=== PATIENT | male | born 1970 | race Caucasian/White ===

== ENCOUNTER 2020-06-21 17:25 | IRF | payer MEDICARE, MEDICAID, SELFPAY ==
[2020-06-21 17:25] VITALS: BP 143/82; PULSE 73; RESP 20; TEMP 36.3; O2SAT 96; BMI 37.7
--- NOTE | 2020-06-21 17:55 | ADMGEN ---
This patient, Saud Washington, was admitted to [facility] Room 225-02. Patient/family oriented to hospital policies and general routines including ID bracelet, bed and alarms, visiting hours, pain management, procedures, bathroom and other care routines, personal items, smoking policy, room service/diet, and visiting hours. Valuables list has been completed. Information on how to activate the Rapid Response Team has been discussed. Patient/Family are encouraged to report perceived risks to care and to ask questions if they do not understand what they are told or what they should do. 1725 Patient arrived via [facility] ambulance, accompanied only by ambulance attendents. He is alert and oriented x4
[2020-06-21] MEDS: MIRTAZAPINE 15 MG TABLET PO (21:21)
[2020-06-21] MEDS: HEPARIN SODIUM 5,000 UNITS/ML VIAL 5000 UNITS SUB-Q (21:21)
[2020-06-21] MEDS: ATORVASTATIN 40 MG TABLET PO (21:22)
--- NOTE | 2020-06-21 21:41 | PC.NURSE ---
pt refused gabapentin at bedtime stating he only takes it as needed. updated.
[2020-06-21 22:00] VITALS: BP 134/94; PULSE 71; RESP 18; TEMP 36.6; O2SAT 92
[2020-06-22] VITALS (21 sets, daily range): BP systolic 147–168; BP diastolic 45–92; PULSE 61–83; RESP 18–24; TEMP 36.2–37; O2SAT 95–96; BMI 38.3
[2020-06-22 04:59] LABS: Basophils Percent Auto 0.1 % (0.2-1.2); Eosinophils Absolute Auto 0.1 K/mm3 (0-0.3); Eosinophils Percent Auto 1.9 % (0-4.4); Hematocrit 28.7 % (42.0-52.0); Hemoglobin 8.6 g/dL (14.0-18.0); Immature Granulocyte Absolute 0.03 K/mm3 (0.00-0.031); Immature Granulocyte Percent A 0.4 % (0-0.5); Lymphocytes Absolute Auto 1.86 K/mm3 (0.9-3.2); Lymphocytes Percent Auto 25.8 % (18.3-44.2); Mean Corpuscular Hemoglobin 27.7 pg (26-34); Mean Corpuscular Volume 92.3 fl (80-100); Mean Platelet Volume 10.5 fl (7.4-10.4); Monocytes Absolute Auto 0.6 K/mm3 (0.1-0.6); Monocytes Percent Auto 8.1 % (2.6-8.5); Neutrophils Absolute Auto 4.6 K/mm3 (1.3-6.7); Neutrophils Percent Auto 63.7 % (45.5-73.1); Platelet Count Result 267 k/mm3 (150-375); Red Blood Count 3.11 M/mm3 (4.6-6.20); Red Cell Distribution Width 19.6 % (11.5-14.5); White Blood Count 7.2 K/mm3 (4.5-10.0)
[2020-06-22 05:12] LABS: Anion Gap 12.7 mmol/L (7-16); Blood Urea Nitrogen 45 mg/dL (9-20); Calcium 8.3 mg/dL (8.4-10.2); Carbon Dioxide 29 mmol/L (22-30); Chloride 95 mmol/L (98-107); Estimated CRCL calculation 26 ml/min; Estimated Glomerular Filt Rate 17; Glucose 129 mg/dL (75-110); Potassium 3.7 mmol/L (3.4-5.0); Sodium 133 mmol/L (137-145)
[2020-06-22 06:40] LABS: Glucose Point of Care 135 (65-105)
[2020-06-22] MEDS: HEPARIN SODIUM 5,000 UNITS/ML VIAL 5000 UNITS SUB-Q ×2 (08:50→20:42)
[2020-06-22] MEDS: ASPIRIN 81 MG CHEWABLE TABLET PO (08:50)
[2020-06-22] MEDS: LACTIC ACID 12% LOTION 225 BTL 1 APPLIC TOPICAL (08:50)
[2020-06-22] MEDS: lisinopriL 10 MG TABLET 30 MG PO (08:50)
[2020-06-22] MEDS: CHOLECALCIFEROL 1,000 UNIT TABLET 1000 UNITS PO (08:50)
[2020-06-22] MEDS: METOPROLOL SUCCINATE EXT REL 100 MG TABCR PO (08:51)
[2020-06-22] MEDS: PANTOPRAZOLE 40 MG TABLET PO (08:52)
[2020-06-22] MEDS: VITAMIN B CMPLX/VIT C/FOLIC AC 1 CAPSULE 1 CAP PO (08:52)
--- NOTE | 2020-06-22 09:30 | WPDREHABHP ---
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 The patient is a 49-year-old white male who is left-handed with a past medical history of diabetes mellitus type 2 with evidence of peripheral neuropathy, congestive heart failure, coronary artery disease and end-stage renal disease now on hemodialysis and Friday and Friday who presented to [facility] on May 31, 2020 with soft tissue infection at the concern for metacarpal head osteomyelitis. Of note patient had a right 3rd finger amputation at metacarpophalangeal joint on May 10, 2020 for gangrene. He was on Bactrim for 3 weeks. He was admitted to [facility] where Infectious Disease, plastic hand surgery, and nephrology were consult consulted. On June 03, 2020 the patient underwent debridement of the right 3rd finger amputation and right 4th finger ray amputation. The cultures from the OR grew Actenomyces. On June 06, 2020 the patient underwent ligation of the right arm AV fistula for concern for steal syndrome. I hemodialysis left intra jugular Perma cath was placed on June 07, 2020. Surgery was planned in June 12 for debridement and mattress stem placement to the right hand wound but the patient had PE a arrest after anesthesia induction and had to be resuscitated. He was transferred to ICU and surgery was consulted canceled. He was extubated and transferred back to the regular medical floor on June 14, 2020. The evening of June 19 the patient underwent the surgery for debridement and mattress time placement to the right hand wound by Plastic surgery with local anesthesia only. Postoperatively he was doing well and still doing well except significant weakness of both upper lower extremities proximal more than distal. There was only trace necrotic tissue found without clinical osteomyelitis. Infectious Disease has discontinued IV antibiotics and he will remain on oral amoxicillin to be given at night for 3 months. He has peritoneal dialysis catheter in place that will be removed on an outpatient basis after rehab at [facility] where he was put in he does have the patient to follow up with Infectious Disease 1 month after discharge. Patient hospitalization significant for uremic myopathy as evidenced by a reduced GFR currently a 23 up from 11, difficulty rising from a chair or bed muscle atrophy and proximal muscle weakness more than the distal needing significant assistance in all the activities of daily living The patient has not traveled outside the [place] or had contact with someone who is ill that has traveled outside the use in the past 21 days. The patient has not traveled to an area of the [place] that is experiencing no transmission of the coronal virus and has not had close personal contact with anyone that has. Patient does not have a fever. The patient is not experiencing any lower respiratory illness symptoms. Therapy was initiated at the acute care facility and the patient transferred to us from [facility] on June 21, 2020 FALLS OR SURGERIES: The patient has had major surgeries in the 100 days prior to admission. They had falls in the past year. They had falls with injury in the past year. PAST MEDICAL HISTORY: end-stage renal disease on hemodialysis now prior to that he was PAST SURGICAL HISTORY: End-stage renal disease on hemodialysis, prior to that on peritoneal dialysis roughly about 4 years which was complicated by peritonitis for which he was treated at [facility] and now has a drain which is not draining much it has to be removed at w
--- NOTE | 2020-06-22 11:17 | PM.CNNEP ---
Assessment and Plan Assessment and plan (1) End stage renal disease: Code(s): N18.6 - End stage renal disease Status: Acute Assessment and Plan: the patient has end-stage renal disease. He gets dialysis 3 times a week. He says that they take a couple of L off each treatment. We will do dialysis this afternoon and take 2L off. If he does real well then we may challenge him to try to get rid of the fluid in his legs. (2) Type 2 diabetes mellitus: Code(s): E11.9 - Type 2 diabetes mellitus without complications Status: Acute Assessment and Plan: The patient is getting Accu-Cheks. He is on no insulin. (3) Hypertension: Code(s): I10 - Essential (primary) hypertension Status: Acute Assessment and Plan: The patient has had hypertension for a long time. He is getting lisinopril for this. His blood pressure is pretty good right now. We will see how it does with dialysis And fluid removal. (4) Coronary artery disease: Code(s): I25.10 - Atherosclerotic heart disease of [place] coronary artery without angina pectoris Status: Acute Assessment and Plan: The patient has coronary artery disease. He had a bypass a while back. He is not having any chest pain (5) Erythropoietin deficiency anemia: Code(s): D63.1 - Anemia in chronic kidney disease Status: Acute Assessment and Plan: the patient has anemia. We can check iron levels and a retained count to see how he is responding to the EPO. He will get EPO with dialysis (6) Renal osteodystrophy: Code(s): N25.0 - Renal osteodystrophy Status: Acute Assessment and Plan: we will check a phosphorus in the morning. (7) Peritoneal abscess: Code(s): K65.1 - Peritoneal abscess Status: Acute Assessment and Plan: The patient still has the drain in here. This is not a peritoneal dialysis catheter. This will be removed at [facility]. History of Present Illness Reason for Consult Consult date: 06/22/20 Chief Complaint Chief complaint: Uremic myopathy History of Present Illness Narrative: he is a very pleasant 49-year-old gentleman who has multiple medical problems including end-stage renal disease, diabetes, hypertension, peripheral vascular disease, coronary disease status post bypass, anemia, renal osteodystrophy, hyperlipidemia, vitamin-D deficiency, GERD. The patient has trouble started a few weeks ago when he developed ulcers on his fingers. This was felt to be due to steal from a recently placed fistula. So the fistula was tied off but the wounds on the fingers continued to worsen any ended up with amputation of his 3rd and 4th fingers in the right hand. In the meantime the patient had complications while in the hospital including a PEA arrest, moved to the ICU, intubation, somewhat stormy course apparently, and then recovered. He was left with being very weak and even though he had physical therapy in the hospital he was not strong enough to go home so he was transferred to [facility] rehab for further care. Currently the patient feels better. He has been eating pretty well. He is not having any shortness of breath. He does have a little bit of swelling. He denies any chest pain or belly pain. The patient has had end-stage renal disease for about 6 or 7 years he says. He says at that time he had not been aware ofany medical conditions and when he presented in 2013 he had hypertension, diabetes, and kidney failure. He ended up on dialysis. He started peritoneal dialysis and was on this for about 4 years. Unfortunately he developed peritonitis in the had to stop the dialysis and the catheter was removed. Since then he has been on hemodialysis by various accesses. As stated above he had a fistula that was maturing however he developed this deal so the fistula was tied off and now he has a tunneled hemodialysis catheter
[2020-06-22 12:28] LABS: Immature Reticulocyte Fraction 14.9 % (3.0-15.9); Reticulocyte Hemoglobin Conten 35.4 pg (28.2-35.7); Reticulocyte Percent 3.06 % (0.7-4.3)
[2020-06-22 12:55] LABS: Hepatitis B Surface Antigen 1.21 S/C; Hepatitis B Surface Antigen Negative (Negative); Hepatitis B Surface Antigen Re 0.18 S/C
[2020-06-22 13:52] LABS: Hepatitis B Surface Anti Res Negative
[2020-06-22] MEDS: HEPARIN SODIUM 1,000 UNITS/ML VIAL 1000 UNITS IV PUSH ×2 (13:52→17:53)
[2020-06-22] MEDS: HEPARIN SODIUM 1,000 UNITS/ML VIAL 500 UNITS IV PUSH ×2 (13:56→14:56)
--- NOTE | 2020-06-22 15:04 | PCCCNOTE ---
On 06/22/20, the student, [Carlito Fisher ], provided care and completed [facility] documentation on this patient. I have reviewed the student's documentation and agree with the findings.
--- NOTE | 2020-06-22 15:26 | RPD ---
INDIVIDUALIZED PLAN OF CARE FOR Saud Washington Brief Synthesis of Pre-Admission Screen, Post-Admission Evaluation and Therapy Evaluations: The patient presents to rehab with uremic myopathy. Comorbidities include hypertension, hyperlipidemia, diabetes mellitus type 2 with hyperglycemia, end-stage renal disease on hemodialysis, anemia, steal syndrome, right 3rd and 4th digit osteomyelitis with necrosis, volume overload, anasarca, hypotension, left perma cath placement, coronary artery disease, AVF ligation, acute postoperative pain, bone mineral disease, vitamin D deficiency, and PEA arrest. The patient?s needs will be best met in an intensive program vs. at a lower level of care. The patient requires physician services for medical oversight, management of post-op complications in setting of present comorbidities, and pain management. The patient requires nursing services for anticoagulation therapy, diabetes training, DVT prophylactics, infection protection, medication management and education, pressure relief, and wound care. Deficits include:ADLs, Balance, Endurance, Family Training/Education, Mobility, Pain Management, ROM, Safety, Strength, and Transfers Ambulance Dispatcher/Case Management for: Discharge Planning and Patient/Family Counseling Physical Therapy: 5 days per week for 90 minutes. Treatments may include: Therapeutic Exercise, Gait Training, Neuromuscular Re-education, Transfer Training, Community Reintegration, Bed Mobility, Patient/Family Education, Wheelchair Mobility Group Therapy/Concurrent Therapy Rationales: -Improve attention span during functional activities in a distracted environment. -Enhance problem solving and/or adequate judgment skills during functional activities in a distracted environment. -Promote increased safety awareness in a distracted environment to reduce fall risk with functional tasks, transfers, and ambulation to allow a more safe, self-sufficient return to the home environment. -Improve dynamic balance skills to promote safety and independence with functional activities in a distracted environment for maximum gain. Occupational Therapy: 5 days per week for 90 minutes. Treatments may include: Therapeutic Exercise, Therapeutic Activity, Cognitive Training, Self-Care Transfer Training, Community Reintegration, Home Management, Patient/Family Education, Wheelchair Mobility Training, Energy Conservation Training Group Therapy/Concurrent Therapy Rationales: -Allow therapist to observe and teach generalization and carry-over of skills learned in individual therapy. -Enhance problem solving and sequencing skills during therapeutic activities in a distracted environment. -Promote increased safety awareness in a realistic setting to reduce fall risk with functional tasks due to visual and verbal distractions. -Increase functional level with ADLs, ADL transfers and use of adaptive equipment through therapeutic activities with others while promoting safety to allow a more safe, self-sufficient return home. Medical Prognosis: Good Anticipated Length of Stay: 14 days Rehab Goals: Eating Goal: 06-Independent Oral Hygiene Goal: 05-Setup or Clean Up Assistance Toileting Hygiene Goal: 03-Partial/Moderate Assistance Shower/Bathe Self Goal: 03-Partial/Moderate Assistance Upper Body Dressing Goal: 05-Setup or Clean Up Assistance Lower Body Dressing Goal: 03-Partial/Moderate Assistance Putting On/Taking Off Footwear Goal: 03-Partial/Moderate Assistance Rolling Left and Right Goal: 06-Independent Sit to Lying Goal: 06-Independent Lying to Sitting on Side of Bed Goal: 06-Independent Sit to Stand Goal: 04-Supervision or Touching Assistance Chair/[id number]-[id number] Transfer Goal: 04-Supervision or Touching Assistance Toilet Transfer Goal: 04-Supervision or Touching Assistance Car Transfer Goal: 04-Supervision or Touching Assistance Walk 10' Goal: 04-Supervision or Touching Assistance Walk 50' with Two Turns Goal: 03-Partial/Moderate Assistance
[2020-06-22] MEDS: EPOETIN ALFA-EPBX 10,000 UNITS/ML VIAL 10000 UNITS IV PUSH (16:58)
[2020-06-22 17:08] LABS: Iron 57 ug/dL (49-181)
[2020-06-22 17:18] LABS: Percent Iron Saturation 31 % (20-50)
[2020-06-22] MEDS: AMOXICILLIN 500 MG CAPSULE PO (20:42)
[2020-06-22] MEDS: ATORVASTATIN 40 MG TABLET PO (20:42)
[2020-06-22] MEDS: MIRTAZAPINE 15 MG TABLET PO (20:42)
[2020-06-23 05:03] LABS: Albumin Level 3.1 g/dL (3.5-5.1); Anion Gap 10.7 mmol/L (7-16); Blood Urea Nitrogen 30 mg/dL (9-20); Calcium 8.2 mg/dL (8.4-10.2); Carbon Dioxide 31 mmol/L (22-30); Chloride 97 mmol/L (98-107); Estimated CRCL calculation 32 ml/min; Estimated Glomerular Filt Rate 22; Glucose 138 mg/dL (75-110); Phosphorus 2.3 mg/dL (2.5-4.5); Potassium 3.7 mmol/L (3.4-5.0); Sodium 135 mmol/L (137-145)
[2020-06-23 06:00] VITALS: BP 150/74; PULSE 95; RESP 18; TEMP 36.3; O2SAT 95
[2020-06-23 06:52] LABS: Glucose Point of Care 132 (65-105)
[2020-06-23] MEDS: LACTIC ACID 12% LOTION 225 BTL 1 APPLIC TOPICAL (08:30)
[2020-06-23] MEDS: HEPARIN SODIUM 5,000 UNITS/ML VIAL 5000 UNITS SUB-Q ×2 (08:41→19:58)
[2020-06-23 08:42] VITALS: PULSE 95
[2020-06-23] MEDS: ASPIRIN 81 MG CHEWABLE TABLET PO (08:42)
[2020-06-23] MEDS: CHOLECALCIFEROL 1,000 UNIT TABLET 1000 UNITS PO (08:42)
[2020-06-23] MEDS: PANTOPRAZOLE 40 MG TABLET PO (08:42)
[2020-06-23] MEDS: METOPROLOL SUCCINATE EXT REL 100 MG TABCR PO (08:42)
[2020-06-23] MEDS: lisinopriL 10 MG TABLET 30 MG PO (08:42)
[2020-06-23] MEDS: DIGOXIN TAB 125 MCG TABLET PO (08:42)
[2020-06-23] MEDS: VITAMIN B CMPLX/VIT C/FOLIC AC 1 CAPSULE 1 CAP PO (08:42)
[2020-06-23 14:00] VITALS: BP 143/72; PULSE 98; RESP 20; TEMP 36.2; O2SAT 97
--- NOTE | 2020-06-23 15:00 | WPDNEURORHBP ---
Subjective Date/time seen: 06/23/20 15:00 Interval history: this 49-year-old is here with diagnosis of uremic myopathy with significant weakness of the lower extremities than the upper extremities he is on dialysis now and the PermCath is intact and is being used for the dialysis the old peritoneal dialysis catheter has a drain which needs to be removed at the [facility] post discharge the patient is getting little frustrated because he has been in the hospital for several weeks with of course with weakness of the myopathy she denies he denies any headache nausea vomiting chest pain shortness of breath fever chills sore throat Review of Systems Review of Systems: All systems reviewed & are unremarkable except as noted in HPI and below Functional Status Ambulation Ability Ability to Ambulate 10 Feet: Moderate Assistance X 1 Ambulation Assistive Devices: Railings Transfers Ability Ability to Transfer In/Out of Chair: Total Assistance X 1 Exam Const: General: comfortable and no acute distress HENMT: General nose exam: Normal nares present Mouth: Yes moist mucous membranes Eyes: General: appearance normal, both eyes and all related structures Neck: Neck: supple and no JVD Resp: Effort & Inspection: normal respiratory effort Auscultation: clear to auscultation bilaterally Cardio: Rate: regular rate Rhythm: regular rhythm GI: GI Palp: Yes Soft to palpation Auscultation: normal bowel sounds Other: the peritoneal dialysis catheter is there with a drain not much drainage is noted no sign of infectious noted around there Skin: General skin exam: normal color and no rashes or lesions noted Neuro: Other: patient is awake alert well oriented without any lateralizing focal motor weakness however significant myopathy affecting the lower extremities more so than the upper extremities needing assistance all the activities of daily living with depressed reflexes also sensory deficit in the feet and the lower legs Extrem: Other: mild swelling of the lower extremity Psych: Mental Status: mental status grossly normal Objective Data Vital Signs Vital Signs: Vital Signs - 24 hr 06/22/20 15:15 06/22/20 15:30 06/22/20 16:00 Temperature Pulse Rate 70 65 62 Respiratory Rate Blood Pressure 166/83 H 158/84 H 168/85 H Pulse Oximetry 06/22/20 16:15 06/22/20 16:30 06/22/20 16:45 Temperature Pulse Rate 63 64 63 Respiratory Rate Blood Pressure 164/89 H 153/73 H 150/79 H Pulse Oximetry 06/22/20 17:00 06/22/20 17:15 06/22/20 17:29 Temperature Pulse Rate 64 63 61 Respiratory Rate Blood Pressure 156/80 H 153/83 H 157/83 H Pulse Oximetry 06/22/20 17:35 06/22/20 22:00 06/23/20 06:00 Temperature 36.8 C 36.5 C 36.3 C L Pulse Rate 64 75 95 Respiratory Rate 20 18 18 Blood Pressure 147/89 H 152/77 H 150/74 H Pulse Oximetry 96 95 06/23/20 08:42 06/23/20 14:00 Temperature 36.2 C L Pulse Rate 95 98 Respiratory Rate 20 Blood Pressure 143/72 H Pulse Oximetry 97 Intake/Output Intake/Output: Intake & Output 06/20/20 06/21/20 06/22/20 06/23/20 23:59 23:59 23:59 23:59 Intake Total 840 340 Output Total 1999 Balance -1160 340 Meds/Results Medications: Active Medications Generic Name Dose Route Start Last Admin Trade Name Freq PRN Reason Stop Dose Admin Acetaminophen 650 mg 06/21/20 18:52 Tylenol Tablet PO Q6H PRN Pain, Mild Amoxicillin 500 mg 06/22/20 21:00 06/22/20 20:42 Amoxil Capsule PO 500 mg HS RONNIE Administration Aspirin 81 mg 06/22/20 09:00 06/23/20 08:42 Aspirin Chewable PO 81 mg DAILY RONNIE Administration Atorvastatin Calcium 40 mg 06/21/20 21:00 06/22/20 20:42 Lipitor PO 40 mg HS RONNIE Administration Digoxin 125 mcg 06/23/20 09:00 06/23/20 08:42 Lanoxin Tab PO 125 mcg MoWeFr RONNIE Administration Gabapentin 100 mg 06/22/20 11:07 Neurontin PO Q4H PRN MODERATE PAIN H
[2020-06-23 16:40] LABS: Glucose Point of Care 156 (65-105)
[2020-06-23] MEDS: AMOXICILLIN 500 MG CAPSULE PO (19:58)
[2020-06-23] MEDS: ATORVASTATIN 40 MG TABLET PO (19:58)
[2020-06-23] MEDS: MIRTAZAPINE 15 MG TABLET PO (19:59)
[2020-06-23 20:00] VITALS: PULSE 74; RESP 20; O2SAT 97
[2020-06-23 20:21] VITALS: BP 171/65; PULSE 74; RESP 20; TEMP 35.9; O2SAT 97
[2020-06-24] VITALS (23 sets, daily range): BP systolic 141–188; BP diastolic 65–108; PULSE 68–84; RESP 18–20; TEMP 35.9–37; O2SAT 91–97
[2020-06-24 06:50] LABS: Glucose Point of Care 135 (65-105)
[2020-06-24] MEDS: HEPARIN SODIUM 5,000 UNITS/ML VIAL 5000 UNITS SUB-Q ×2 (09:34→20:27)
[2020-06-24] MEDS: VITAMIN B CMPLX/VIT C/FOLIC AC 1 CAPSULE 1 CAP PO (09:34)
[2020-06-24] MEDS: METOPROLOL SUCCINATE EXT REL 100 MG TABCR PO (09:35)
[2020-06-24] MEDS: lisinopriL 10 MG TABLET 30 MG PO (09:35)
[2020-06-24] MEDS: CHOLECALCIFEROL 1,000 UNIT TABLET 1000 UNITS PO (09:35)
[2020-06-24] MEDS: LACTIC ACID 12% LOTION 225 BTL 1 APPLIC TOPICAL (09:35)
[2020-06-24] MEDS: ASPIRIN 81 MG CHEWABLE TABLET PO (09:35)
[2020-06-24] MEDS: PANTOPRAZOLE 40 MG TABLET PO (09:35)
--- NOTE | 2020-06-24 09:42 | PM.PNNEP ---
Progress Note: A&P Assessment and Plan (1) End stage renal disease: Code(s): N18.6 - End stage renal disease Status: Acute Assessment and Plan: the patient has end-stage renal disease. He gets dialysis 3 times a week. due for dialysis today. He will get this after physical therapy today. (2) Type 2 diabetes mellitus: Code(s): E11.9 - Type 2 diabetes mellitus without complications Status: Acute Assessment and Plan: The patient is getting Accu-Cheks. He is on no insulin. (3) Hypertension: Code(s): I10 - Essential (primary) hypertension Status: Acute Assessment and Plan: The patient has had hypertension for a long time. He is getting lisinopril for this. His blood pressure is pretty good right now. (4) Coronary artery disease: Code(s): I25.10 - Atherosclerotic heart disease of [place] coronary artery without angina pectoris Status: Acute Assessment and Plan: The patient has coronary artery disease. He had a bypass a while back. He is not having any chest pain (5) Erythropoietin deficiency anemia: Code(s): D63.1 - Anemia in chronic kidney disease Status: Acute Assessment and Plan: the patient has anemia. T sat is okay. Retake is good. He will get EPO with dialysis (6) Renal osteodystrophy: Code(s): N25.0 - Renal osteodystrophy Status: Acute Assessment and Plan: Phosphorus level a little bit low. He is off binders. Recheck this next week (7) Peritoneal abscess: Code(s): K65.1 - Peritoneal abscess Status: Acute Assessment and Plan: The patient still has the drain in here. This is not a peritoneal dialysis catheter. This will be removed at [facility]. Subjective Date/time seen: 06/24/20 09:42 Interval history: patient is alert. He just finished breakfast. No chest pain or shortness of breath Review of Systems Cardiovascular: Cardiovascular: Reports no additional cardiovascular complaints Respiratory: Respiratory: Reports no additional respiratory complaints Gastrointestinal: Gastrointestinal: Reports no additional gastrointestinal complaints Genitourinary: Genitourinary: Reports no additional male genitourinary complaints Exam Narrative: Exam Narrative: WDWN in NAD skin no rash head ncat lungs clear cor reg no rub abd BS+ nontender and soft ext 1+ edema. Objective Data Vital Signs Vital Signs: Vital Signs - 24 hr 06/23/20 14:00 06/23/20 20:00 06/23/20 20:21 Temperature 36.2 C L 35.9 C L Pulse Rate 98 74 74 Respiratory Rate 20 20 20 Blood Pressure 143/72 H 171/00 H Pulse Oximetry 97 97 97 06/24/20 06:00 06/24/20 09:10 06/24/20 09:35 Temperature 35.9 C L 36.6 C Pulse Rate 78 93 78 Respiratory Rate 18 18 Blood Pressure 142/85 H 141/59 H Pulse Oximetry 91 Intake/Output Intake/Output: Intake & Output 06/21/20 06/22/20 06/23/20 06/24/20 23:59 23:59 23:59 23:59 Intake Total 840 580 Output Total 1999 Balance -1160 580 Meds/Results Medications: Active Medications Generic Name Dose Route Start Last Admin Trade Name Freq PRN Reason Stop Dose Admin Acetaminophen 650 mg 06/21/20 18:52 Tylenol Tablet PO Q6H PRN Pain, Mild Amoxicillin 500 mg 06/22/20 21:00 06/23/20 19:58 Amoxil Capsule PO 500 mg HS RONNIE Administration Aspirin 81 mg 06/22/20 09:00 06/24/20 09:35 Aspirin Chewable PO 81 mg DAILY RONNIE Administration Atorvastatin Calcium 40 mg 06/21/20 21:00 06/23/20 19:58 Lipitor PO 40 mg HS RONNIE Administration Digoxin 125 mcg 06/23/20 09:00 06/23/20 08:42 Lanoxin Tab PO 125 mcg MoWeFr RONNIE Administration Gabapentin 100 mg 06/22/20 11:07 Neurontin PO Q4H PRN MODERATE PAIN Heparin Sodium (Porcine) 5,000 units 06/21/20 21:00 06/24/20 09:34 Heparin Sodium SUB-Q 5,000 units Q12HR SC
[2020-06-24] MEDS: HEPARIN SODIUM 1,000 UNITS/ML VIAL 1000 UNITS IV PUSH ×2 (16:11→20:06)
[2020-06-24] MEDS: HEPARIN SODIUM 1,000 UNITS/ML VIAL 500 UNITS IV PUSH ×2 (17:12→17:14)
[2020-06-24] MEDS: EPOETIN ALFA-EPBX 10,000 UNITS/ML VIAL 10000 UNITS IV PUSH (18:34)
[2020-06-24] MEDS: AMOXICILLIN 500 MG CAPSULE PO (20:27)
[2020-06-24] MEDS: MIRTAZAPINE 15 MG TABLET PO (20:27)
[2020-06-24] MEDS: ATORVASTATIN 40 MG TABLET PO (20:27)
[2020-06-25 05:26] VITALS: BP 151/78; PULSE 83; RESP 18; TEMP 36.7; O2SAT 93
[2020-06-25 06:48] LABS: Glucose Point of Care 126 (65-105)
[2020-06-25] MEDS: LACTIC ACID 12% LOTION 225 BTL 1 APPLIC TOPICAL (08:56)
[2020-06-25] MEDS: CHOLECALCIFEROL 1,000 UNIT TABLET 1000 UNITS PO (08:56)
[2020-06-25] MEDS: ASPIRIN 81 MG CHEWABLE TABLET PO (08:56)
[2020-06-25] MEDS: HEPARIN SODIUM 5,000 UNITS/ML VIAL 5000 UNITS SUB-Q ×2 (08:56→20:12)
[2020-06-25 08:57] VITALS: PULSE 83
[2020-06-25] MEDS: METOPROLOL SUCCINATE EXT REL 100 MG TABCR PO (08:57)
[2020-06-25] MEDS: PANTOPRAZOLE 40 MG TABLET PO (08:57)
[2020-06-25] MEDS: lisinopriL 10 MG TABLET 30 MG PO (08:57)
[2020-06-25] MEDS: VITAMIN B CMPLX/VIT C/FOLIC AC 1 CAPSULE 1 CAP PO (08:57)
[2020-06-25 14:00] VITALS: BP 148/71; PULSE 79; RESP 20; TEMP 36.1; O2SAT 98
[2020-06-25 16:55] LABS: Glucose Point of Care 136 (65-105)
[2020-06-25] MEDS: MIRTAZAPINE 15 MG TABLET PO (20:12)
[2020-06-25] MEDS: AMOXICILLIN 500 MG CAPSULE PO (20:12)
[2020-06-25] MEDS: ATORVASTATIN 40 MG TABLET PO (20:12)
[2020-06-25 20:13] VITALS: BP 154/81; PULSE 86; RESP 18; TEMP 36.2; O2SAT 96
[2020-06-26 06:00] VITALS: BP 158/87; PULSE 85; RESP 18; TEMP 36.4; O2SAT 93
[2020-06-26 06:13] LABS: Glucose Point of Care 110 (65-105)
[2020-06-26 08:48] VITALS: PULSE 85
[2020-06-26] MEDS: METOPROLOL SUCCINATE EXT REL 100 MG TABCR PO (08:48)
[2020-06-26] MEDS: ASPIRIN 81 MG CHEWABLE TABLET PO (08:48)
[2020-06-26] MEDS: HEPARIN SODIUM 5,000 UNITS/ML VIAL 5000 UNITS SUB-Q ×2 (08:48→20:27)
[2020-06-26] MEDS: PANTOPRAZOLE 40 MG TABLET PO (08:48)
[2020-06-26] MEDS: lisinopriL 10 MG TABLET 30 MG PO (08:48)
[2020-06-26] MEDS: CHOLECALCIFEROL 1,000 UNIT TABLET 1000 UNITS PO (08:48)
[2020-06-26] MEDS: DIGOXIN TAB 125 MCG TABLET PO (08:48)
[2020-06-26] MEDS: VITAMIN B CMPLX/VIT C/FOLIC AC 1 CAPSULE 1 CAP PO (08:49)
[2020-06-26] MEDS: LACTIC ACID 12% LOTION 225 BTL 1 APPLIC TOPICAL (08:49)
--- NOTE | 2020-06-26 12:05 | WPDNEURORHBP ---
Subjective Date/time seen: seen on 06/25/20 at noon uremic myopathy with dialysis Review of Systems Review of Systems: All systems reviewed & are unremarkable except as noted in HPI and below Functional Status Ambulation Ability Ability to Ambulate 10 Feet: Minimum Assistance X 1 Ambulation Assistive Devices: Cane, Brian and Railings Transfers Ability Ability to Transfer In/Out of Chair: Total Assistance X 1 Exam Const: General: cooperative, alert, awake, anxious and ill appearing Nutritional Appearance: average body habitus Orientation/consciousness: oriented to person, oriented to place, oriented to time and patient oriented x3 HENMT: Head: normal to inspection Ears: hearing grossly normal bilaterally General nose exam: Normal external nose present and No nasal discharge present Face and sinus: normal facial exam Mouth: Yes Normal oral and palatal mucosa present Eyes: General: appearance normal, both eyes and all related structures Neck: Neck: full ROM and no lymphadenopathy Thyroid: thyroid normal Resp: Effort & Inspection: normal respiratory effort and able to speak in complete sentences Objective Data Vital Signs Vital Signs: Vital Signs - 24 hr 06/25/20 14:00 06/25/20 20:13 06/26/20 06:00 Temperature 36.1 C L 36.2 C L 36.4 C L Pulse Rate 79 86 85 Respiratory Rate 20 18 18 Blood Pressure 148/71 H 154/81 H 158/87 H Pulse Oximetry 98 96 93 06/26/20 08:48 Temperature Pulse Rate 85 Respiratory Rate Blood Pressure Pulse Oximetry Intake/Output Intake/Output: Intake & Output 06/23/20 06/24/20 06/25/20 06/26/20 23:59 23:59 23:59 23:59 Intake Total 580 480 560 240 Output Total 4000 Balance 580 -3520 560 240 Meds/Results Medications: Active Medications Generic Name Dose Route Start Last Admin Trade Name Freq PRN Reason Stop Dose Admin Acetaminophen 650 mg 06/21/20 18:52 Tylenol Tablet PO Q6H PRN Pain, Mild Amoxicillin 500 mg 06/22/20 21:00 06/25/20 20:12 Amoxil Capsule PO 500 mg HS RONNIE Administration Aspirin 81 mg 06/22/20 09:00 06/26/20 08:48 Aspirin Chewable PO 81 mg DAILY RONNIE Administration Atorvastatin Calcium 40 mg 06/21/20 21:00 06/25/20 20:12 Lipitor PO 40 mg HS RONNIE Administration Digoxin 125 mcg 06/23/20 09:00 06/26/20 08:48 Lanoxin Tab PO 125 mcg MoWeFr RONNIE Administration Epoetin Eric-epbx 10,000 units 06/24/20 10:30 06/24/20 18:34 Retacrit IV PUSH 10,000 units TUTHSA RONNIE Administration Gabapentin 100 mg 06/22/20 11:07 Neurontin PO Q4H PRN MODERATE PAIN Heparin Sodium (Porcine) 5,000 units 06/21/20 21:00 06/26/20 08:48 Heparin Sodium SUB-Q 5,000 units Q12HR RONNIE Administration Lactic Acid 1 applic 06/22/20 09:00 06/26/20 08:49 Lac-Hydrin Lotion TOPICAL 07/22/20 09:01 1 applic DAILY RONNIE Administration Lisinopril 30 mg 06/22/20 09:00 06/26/20 08:48 Prinivil PO 30 mg DAILY RONNIE Administration Metoprolol Succinate 100 mg 06/22/20 09:00 06/26/20 08:48 Toprol Xl PO 100 mg DAILY RONNIE Administration Mirtazapine 15 mg 06/21/20 21:00 06/25/20 20:12 Remeron PO 15 mg HS RONNIE Administration Pantoprazole Sodium 40 mg 06/22/20 09:00 06/26/20 08:48 Protonix PO 40 mg DAILY RONNIE Administration Vitamin B Complex/Folic Acid 1 cap 06/22/20 09:00 06/26/20 08:49 Nephrocaps Softgel PO 07/22/20 09:01 1 cap DAILY RONNIE Administration Vitamin D 1,000 unit 06/22/20 09:00 06/26/20 08:48 Vitamin D PO 1,000 unit DAILY RONNIE Administration Labs Labs: Laboratory Results - last 24 hr 06/25/20 06/26/20 16:51 06:11 POC Capillary Glucose 136 H 110
[2020-06-26 14:00] VITALS: BP 180/96; PULSE 78; RESP 22; TEMP 36.2; O2SAT 100
--- NOTE | 2020-06-26 15:39 | PCPTNOTE ---
Nicole Haywood PTA completed an inpatient rehab wheelchair evaluation on Saud Washington on 06/26/2020. The patient is unable to safely and independently ambulate household distances due to their current impairments. Their diagnosis is Uremic myopathy and their impairments include decreased strength, decreased endurance, decreased range of motion, decreased balance, lower extremity weakness. Saud's weight bearing status is weight-bearing as tolerated on the bilateral lower legs. The patient demonstrates significant functional mobility limitations that impair their ability to participate in mobility-related activities of daily living (MRADLs), including toileting, feeding, dressing, grooming, and bathing in the customary locations in the home. These limitations cannot be sufficiently resolved by the use of an appropriately fitted cane or walker. It is recommended that the patient utilize a wheelchair for functional mobility within the home in order to facilitate optimal safety, independence and participation in all MRADL's and adequately access their home environment on a regular basis. The patient's home provides adequate access between rooms, maneuvering space, and surfaces to accommodate the recommended wheelchair. The use of a wheelchair for functional mobility is strongly recommended and the patient is receptive to using the wheelchair. The use of this wheelchair will significantly improve the patient's ability to participate in MRADLS and the patient will use it on a regular basis in the home. This will facilitate optimal safety, independence, and participation. The patient has demonstrated sufficient physical and mental capabilities needed to safely propel a manual wheelchair that is provided in the home during a typical day. Recommended Wheelchair Frame: STANDARD Recommended Wheelchair Size: 20 X 18 Patient's anatomical hip width is 18 inches/ Patient's height: 5 foot, 7 inches Recommended Wheelchair Cushion: STANDARD Wheelchair Leg Recommendations: BILATERAL SWING AWAY -Anti-tippers are recommended due to patient demonstrating increased risk for falls. They would benefit from anti-tippers with added safety and stabilization. Nicole Haywood PTA 06/26/2020 Evaluating Therapist Date I agree with and certify that the above recommendation is medically necessary. Referring Physician Date I agree with and certify that the above recommendation is medically necessary. Referring Physician Date
[2020-06-26 17:11] LABS: Glucose Point of Care 132 (65-105)
[2020-06-26] MEDS: ATORVASTATIN 40 MG TABLET PO (20:27)
[2020-06-26] MEDS: MIRTAZAPINE 15 MG TABLET PO (20:27)
[2020-06-26] MEDS: AMOXICILLIN 500 MG CAPSULE PO (20:28)
[2020-06-26 21:47] VITALS: BP 153/84; PULSE 86; RESP 18; TEMP 35.2; O2SAT 95
[2020-06-27] VITALS (21 sets, daily range): BP systolic 146–187; BP diastolic 71–111; PULSE 61–87; RESP 16–18; TEMP 35.3–36.7; O2SAT 90–96
[2020-06-27 06:45] LABS: Glucose Point of Care 128 (65-105)
[2020-06-27] MEDS: CHOLECALCIFEROL 1,000 UNIT TABLET 1000 UNITS PO (07:51)
[2020-06-27] MEDS: ASPIRIN 81 MG CHEWABLE TABLET PO (07:51)
[2020-06-27] MEDS: lisinopriL 10 MG TABLET 30 MG PO ×2 (07:52→19:13)
[2020-06-27] MEDS: HEPARIN SODIUM 5,000 UNITS/ML VIAL 5000 UNITS SUB-Q ×2 (07:52→20:14)
[2020-06-27] MEDS: METOPROLOL SUCCINATE EXT REL 100 MG TABCR PO (07:52)
[2020-06-27] MEDS: PANTOPRAZOLE 40 MG TABLET PO (07:53)
[2020-06-27] MEDS: VITAMIN B CMPLX/VIT C/FOLIC AC 1 CAPSULE 1 CAP PO (07:53)
[2020-06-27] MEDS: LACTIC ACID 12% LOTION 225 BTL 1 APPLIC TOPICAL (09:00)
--- NOTE | 2020-06-27 09:44 | PM.PNNEP ---
Progress Note: A&P Assessment and Plan (1) End stage renal disease: Code(s): N18.6 - End stage renal disease Status: Acute Assessment and Plan: the patient has end-stage renal disease. He gets dialysis 3 times a week. due for dialysis today. will remove more fluid today. (2) Type 2 diabetes mellitus: Code(s): E11.9 - Type 2 diabetes mellitus without complications Status: Acute Assessment and Plan: The patient is getting Accu-Cheks. He is on no insulin. (3) Hypertension: Code(s): I10 - Essential (primary) hypertension Status: Acute Assessment and Plan: The patient has had hypertension for a long time. He is getting lisinopril for this. His blood pressure is Up and down but generally a little bit on the high side. Will increase lisinopril to twice a day. (4) Coronary artery disease: Code(s): I25.10 - Atherosclerotic heart disease of [place] coronary artery without angina pectoris Status: Acute Assessment and Plan: The patient has coronary artery disease. He had a bypass a while back. He is not having any chest pain No shortness of breath. (5) Erythropoietin deficiency anemia: Code(s): D63.1 - Anemia in chronic kidney disease Status: Acute Assessment and Plan: the patient has anemia. T sat is okay. Retic count is good. He will get EPO with dialysis (6) Renal osteodystrophy: Code(s): N25.0 - Renal osteodystrophy Status: Acute Assessment and Plan: Phosphorus level a little bit low. He is off binders. Recheck this next week (7) Peritoneal abscess: Code(s): K65.1 - Peritoneal abscess Status: Acute Assessment and Plan: The patient still has the drain in here. This is not a peritoneal dialysis catheter. This will be removed at [facility]. Subjective Date/time seen: 06/27/20 09:44 Interval history: patient is alert. Doing well in physical therapy. Swelling is better. No shortness of breath. Review of Systems Cardiovascular: Cardiovascular: Reports no additional cardiovascular complaints Respiratory: Respiratory: Reports no additional respiratory complaints Gastrointestinal: Gastrointestinal: Reports no additional gastrointestinal complaints Genitourinary: Genitourinary: Reports no additional male genitourinary complaints Exam Narrative: Exam Narrative: WDWN in NAD skin no rash or subcu nodules head ncat lungs clear cor reg no rub abd BS+ nontender and soft ext Trace to 1+ edema. Objective Data Vital Signs Vital Signs: Vital Signs - 24 hr 06/26/20 14:00 06/26/20 21:47 06/27/20 06:00 Temperature 36.2 C L 35.2 C L 35.3 C L Pulse Rate 78 86 84 Respiratory Rate 22 H 18 18 Blood Pressure 180/96 H 153/84 H 146/92 H Pulse Oximetry 100 95 90 06/27/20 07:52 Temperature Pulse Rate 78 Respiratory Rate Blood Pressure Pulse Oximetry Intake/Output Intake/Output: Intake & Output 06/24/20 06/25/20 06/26/20 06/27/20 23:59 23:59 23:59 23:59 Intake Total 480 560 720 600 Output Total 4000 Balance -3520 560 720 600 Meds/Results Medications: Active Medications Generic Name Dose Route Start Last Admin Trade Name Freq PRN Reason Stop Dose Admin Acetaminophen 650 mg 06/21/20 18:52 Tylenol Tablet PO Q6H PRN Pain, Mild Amoxicillin 500 mg 06/22/20 21:00 06/26/20 20:28 Amoxil Capsule PO 500 mg HS RONNIE Administration Aspirin 81 mg 06/22/20 09:00 06/27/20 07:51 Aspirin Chewable PO 81 mg DAILY RONNIE Administration Atorvastatin Calcium 40 mg 06/21/20 21:00 06/26/20 20:27 Lipitor PO 40 mg HS RONNIE Administration Digoxin 125 mcg 06/23/20 09:00 06/26/20 08:48 Lanoxin Tab PO 125 mcg MoWeFr RONNIE Administration Epoetin Eric-epbx 10,000 units 06/24/20 10:30 06/24/20 18:34 Retacrit IV PUSH 10,000 units [facility]
[2020-06-27 10:11] LABS: Hemoglobin 9.6 g/dL (14.0-18.0); Mean Corpuscular Hemoglobin 28.4 pg (26-34); Mean Corpuscular Volume 94.7 fl (80-100); Mean Platelet Volume 10.4 fl (7.4-10.4); Platelet Count Result 260 k/mm3 (150-375); Red Blood Count 3.38 M/mm3 (4.6-6.20); White Blood Count 7.6 K/mm3 (4.5-10.0)
[2020-06-27 10:22] LABS: Albumin Level 3.8 g/dL (3.5-5.1); Anion Gap 14.9 mmol/L (7-16); Blood Urea Nitrogen 38 mg/dL (9-20); Calcium 9.1 mg/dL (8.4-10.2); Carbon Dioxide 28 mmol/L (22-30); Chloride 98 mmol/L (98-107); Estimated CRCL calculation 19 ml/min; Estimated Glomerular Filt Rate 12; Glucose 146 mg/dL (75-110); Potassium 3.9 mmol/L (3.4-5.0); Sodium 137 mmol/L (137-145)
--- NOTE | 2020-06-27 11:28 | PCPTNOTE ---
Saud Washington was evaluated for a hemicane on 06/27/2020 by this physical therapist. The hemicane will resolve patient's mobility limitations and will be used for ADL's within the home. The patient can safely use the hemicane. ?The hemicane will resolve the patient?s mobility deficits, including transfers/gait/ADL's. Lynn Dang PT
--- NOTE | 2020-06-27 12:38 | WPDNEURORHBP ---
Subjective Date/time seen: 06/27/20 12:38 Interval history: this 49-year-old gentleman is here for aggressive therapy of because of myopathy related to significant uremia he is getting the dialysis doing fairly well making progress the case was discussed with the family members he denies any headache nausea vomiting chest pain shortness of breath fever chills sore throat and making progress Review of Systems Review of Systems: All systems reviewed & are unremarkable except as noted in HPI and below Functional Status Ambulation Ability Ability to Ambulate 10 Feet: Moderate Assistance X 1 Ambulation Assistive Devices: Cane, Brian Transfers Ability Ability to Transfer In/Out of Chair: Total Assistance X 1 Exam Const: General: comfortable and no acute distress HENMT: General nose exam: Normal nares present Mouth: Yes moist mucous membranes Eyes: General: appearance normal, both eyes and all related structures Neck: Neck: supple and no JVD Resp: Effort & Inspection: normal respiratory effort Auscultation: clear to auscultation bilaterally Cardio: Rate: regular rate Rhythm: regular rhythm GI: GI Palp: Yes Soft to palpation Auscultation: normal bowel sounds Skin: General skin exam: normal color and no rashes or lesions noted Neuro: Other: the patient is awake and alert fluent speech decent Mental State examination decent cranial examination but generalized weakness evidence of myopathy and peripheral neuropathy which is getting better with therapy Extrem: Other: mild edema of the lower extremity Psych: Mental Status: mental status grossly normal Objective Data Vital Signs Vital Signs: Vital Signs - 24 hr 06/26/20 14:00 06/26/20 21:47 06/27/20 06:00 Temperature 36.2 C L 35.2 C L 35.3 C L Pulse Rate 78 86 84 Respiratory Rate 22 H 18 18 Blood Pressure 180/96 H 153/84 H 146/92 H Pulse Oximetry 100 95 90 06/27/20 07:52 Temperature Pulse Rate 78 Respiratory Rate Blood Pressure Pulse Oximetry Intake/Output Intake/Output: Intake & Output 06/24/20 06/25/20 06/26/20 06/27/20 23:59 23:59 23:59 23:59 Intake Total 480 560 720 600 Output Total 4000 Balance -3520 560 720 600 Meds/Results Medications: Active Medications Generic Name Dose Route Start Last Admin Trade Name Freq PRN Reason Stop Dose Admin Acetaminophen 650 mg 06/21/20 18:52 Tylenol Tablet PO Q6H PRN Pain, Mild Amoxicillin 500 mg 06/22/20 21:00 06/26/20 20:28 Amoxil Capsule PO 500 mg HS RONNIE Administration Aspirin 81 mg 06/22/20 09:00 06/27/20 07:51 Aspirin Chewable PO 81 mg DAILY RONNIE Administration Atorvastatin Calcium 40 mg 06/21/20 21:00 06/26/20 20:27 Lipitor PO 40 mg HS RONNIE Administration Digoxin 125 mcg 06/23/20 09:00 06/26/20 08:48 Lanoxin Tab PO 125 mcg MoWeFr RONNIE Administration Epoetin Eric-epbx 10,000 units 06/24/20 10:30 06/24/20 18:34 Retacrit IV PUSH 10,000 units TUTHSA [facility] Administration Gabapentin 100 mg 06/22/20 11:07 Neurontin PO Q4H PRN MODERATE PAIN Heparin Sodium (Porcine) 5,000 units 06/21/20 21:00 06/27/20 07:52 Heparin Sodium SUB-Q 5,000 units Q12HR RONNIE Administration Lactic Acid 1 applic 06/22/20 09:00 06/26/20 08:49 Lac-Hydrin Lotion TOPICAL 07/22/20 09:01 1 applic DAILY [facility] Administration Lisinopril 30 mg 06/27/20 17:00 Prinivil PO BIDWM [facility] Metoprolol Succinate 100 mg 06/22/20 09:00 06/27/20 07:52 Toprol Xl PO 100 mg DAILY RONNIE Administration Mirtazapine 15 mg 06/21/20 21:00 06/26/20 20:27 Remeron PO 15 mg HS RONNIE Administration Pantoprazole Sodium 40 mg 06/22/20 09:00 06/27/20 07:53 Protonix PO 40 mg DAILY RONNIE Administration Vitamin B Complex/Folic Acid 1 cap 06/22/20 09:00 06/27/20 07:53 Nephrocaps Softgel PO 07/22/20 09:01 1 cap DAILY RONNIE Administration Vitamin D 1,000 unit 06/22/20 09:00 06/27/20 07:51 Vitamin
--- NOTE | 2020-06-27 14:04 | PCNFU ---
Nutrition Follow-Up Complete: Involuntary weight loss related to multiple medical issues requiring prolonged hospitalization as evidenced by patient reporting significant weight loss of uncertain amount. Goal: Patient to consume 75% of meals and halt weight loss. Patient has met goal at 94% average meal consumption. Pt current nutrition is DCCD/Renal. Nutrition recommendation: Agree with current recommendations. Last recorded weight is 104.8 kg. Bowel Motility: last bowel movement on 06/26/20 Labs Reviewed: Hgb (9.6) Hct (32) GFR (12) BUN (38) Cr (5.1) Glu (146) Meds Noted: Albumin, Amoxicillin, Remeron, Protonix, Nephrocaps, Vitamin D, Toprol, vitamin B complex Additional Notes: Patient reports appetite is good. Patient did not report any diet related concerns/questions at this time. Follow up every 7 days.
--- NOTE | 2020-06-27 14:16 | PCNSR ---
On 06/27/20, the student, Dario Sherwood, provided care and completed [facility] documentation on this patient. I have reviewed the student's documentation and agree with the findings.
--- NOTE | 2020-06-27 15:23 | PC.NURSE ---
1524 Small amt of serosanguinous drainage noted on dressing under splint to right hand, ,spoke with [facility], he re-enforced that we are not to remove the dressing, it has stem cell therapy under the dressing and removing it would nullify the treatment.
--- NOTE | 2020-06-27 19:12 | PC.NURSE ---
1900... received report from dialysis nurse, 2L fluid pulled off, B/P 171/84, afebrile, tolerated well.
[2020-06-27] MEDS: AMOXICILLIN 500 MG CAPSULE PO (20:14)
[2020-06-27] MEDS: MIRTAZAPINE 15 MG TABLET PO (20:14)
[2020-06-27] MEDS: ATORVASTATIN 40 MG TABLET PO (20:14)
[2020-06-28 05:57] VITALS: BP 146/75; PULSE 84; RESP 18; TEMP 36.1; O2SAT 94
[2020-06-28 06:51] LABS: Glucose Point of Care 105 (65-105)
[2020-06-28] MEDS: HEPARIN SODIUM 5,000 UNITS/ML VIAL 5000 UNITS SUB-Q ×2 (08:46→20:32)
[2020-06-28] MEDS: ASPIRIN 81 MG CHEWABLE TABLET PO (08:47)
[2020-06-28] MEDS: CHOLECALCIFEROL 1,000 UNIT TABLET 1000 UNITS PO (08:47)
[2020-06-28 08:48] VITALS: PULSE 84
[2020-06-28] MEDS: LACTIC ACID 12% LOTION 225 BTL 1 APPLIC TOPICAL (08:48)
[2020-06-28] MEDS: METOPROLOL SUCCINATE EXT REL 100 MG TABCR PO (08:48)
[2020-06-28] MEDS: PANTOPRAZOLE 40 MG TABLET PO (08:48)
[2020-06-28 08:49] VITALS: PULSE 84
[2020-06-28] MEDS: DIGOXIN TAB 125 MCG TABLET PO (08:49)
[2020-06-28] MEDS: VITAMIN B CMPLX/VIT C/FOLIC AC 1 CAPSULE 1 CAP PO (08:49)
[2020-06-28] MEDS: lisinopriL 10 MG TABLET 30 MG PO ×2 (08:50→17:53)
[2020-06-28 14:00] VITALS: BP 162/87; PULSE 78; RESP 18; TEMP 36.5; O2SAT 97
--- NOTE | 2020-06-28 17:07 | WPDNEURORHBP ---
Subjective Date/time seen: 06/28/20 17:07 Interval history: this 49-year-old is here because of significant proximal muscle weakness of both upper lower extremities along with the peripheral vascular disease he is making progress in the rehab and happy with the care he is receiving denies any headache nausea vomiting chest pain shortness of breath fever chills sore throat the right fingers which show evidence of ski [place] are stable Review of Systems Review of Systems: All systems reviewed & are unremarkable except as noted in HPI and below Functional Status Ambulation Ability Ability to Ambulate 10 Feet: Minimum Assistance X 1 Ambulation Assistive Devices: Cane, Brian Transfers Ability Ability to Transfer In/Out of Chair: Total Assistance X 1 Exam Const: General: comfortable and no acute distress HENMT: General nose exam: Normal nares present Mouth: Yes moist mucous membranes Eyes: General: appearance normal, both eyes and all related structures Neck: Neck: supple and no JVD Resp: Effort & Inspection: normal respiratory effort Auscultation: clear to auscultation bilaterally Cardio: Rate: regular rate Rhythm: regular rhythm GI: GI Palp: Yes Soft to palpation Auscultation: normal bowel sounds Skin: General skin exam: normal color and no rashes or lesions noted Neuro: Other: patient is awake alert well oriented with normal speech and language function improving strength both proximal and distal in the upper lower extremities still needing assistance all the activities of daily living Extrem: Other: the fingers of the right hand with ischemia remains stable Psych: Mental Status: mental status grossly normal Objective Data Vital Signs Vital Signs: Vital Signs - 24 hr 06/27/20 17:15 06/27/20 17:30 06/27/20 17:45 Temperature Pulse Rate 71 61 62 Respiratory Rate Blood Pressure 157/93 H 159/81 H 162/83 H Pulse Oximetry 06/27/20 18:00 06/27/20 18:15 06/27/20 18:30 Temperature Pulse Rate 73 67 65 Respiratory Rate Blood Pressure 164/90 H 181/80 H 169/84 H Pulse Oximetry 06/27/20 18:47 06/27/20 19:01 06/27/20 20:35 Temperature 36.6 C 36.2 C L Pulse Rate 66 64 81 Respiratory Rate 16 18 Blood Pressure 165/89 H 171/84 H 149/71 H Pulse Oximetry 96 06/28/20 05:57 06/28/20 08:48 06/28/20 08:49 Temperature 36.1 C L Pulse Rate 84 84 84 Respiratory Rate 18 Blood Pressure 146/75 H Pulse Oximetry 94 06/28/20 14:00 Temperature 36.5 C Pulse Rate 78 Respiratory Rate 18 Blood Pressure 162/87 H Pulse Oximetry 97 Intake/Output Intake/Output: Intake & Output 06/25/20 06/26/20 06/27/20 06/28/20 23:59 23:59 23:59 23:59 Intake Total 883 894 3642 960 Output Total 2000 400 Balance 560 720 -320 560 Meds/Results Medications: Active Medications Generic Name Dose Route Start Last Admin Trade Name Freq PRN Reason Stop Dose Admin Acetaminophen 650 mg 06/21/20 18:52 Tylenol Tablet PO Q6H PRN Pain, Mild Amoxicillin 500 mg 06/22/20 21:00 06/27/20 20:14 Amoxil Capsule PO 500 mg HS RONNIE Administration Aspirin 81 mg 06/22/20 09:00 06/28/20 08:47 Aspirin Chewable PO 81 mg DAILY RONNIE Administration Atorvastatin Calcium 40 mg 06/21/20 21:00 06/27/20 20:14 Lipitor PO 40 mg HS RONNIE Administration Digoxin 125 mcg 06/23/20 09:00 06/28/20 08:49 Lanoxin Tab PO 125 mcg MoWeFr RONNIE Administration Epoetin Eric-epbx 10,000 units 06/24/20 10:30 06/24/20 18:34 Retacrit IV PUSH 10,000 units TUTHSA RONNIE Administration Gabapentin 100 mg 06/22/20 11:07 Neurontin PO Q4H PRN MODERATE PAIN Heparin Sodium (Porcine) 5,000 units 06/21/20 21:00 06/28/20 08:46 Heparin Sodium SUB-Q 5,000 units Q12HR RONNIE Administration Lactic Acid 1 applic 06/22/20 09:00 06/28/20 08:48 Lac-Hydrin Lotion TOPICAL 07/22/20 09:01 1 applic DAILY RONNIE Administration Lisinopril 30 mg 06/27/20 17:00 0
[2020-06-28] MEDS: AMOXICILLIN 500 MG CAPSULE PO (20:33)
[2020-06-28] MEDS: ATORVASTATIN 40 MG TABLET PO (20:33)
[2020-06-28] MEDS: MIRTAZAPINE 15 MG TABLET PO (20:33)
[2020-06-28 20:44] VITALS: BP 158/75; PULSE 79; RESP 18; TEMP 36.7; O2SAT 97
[2020-06-29] VITALS (22 sets, daily range): BP systolic 136–183; BP diastolic 62–109; PULSE 70–97; RESP 16–20; TEMP 36.2–37.2; O2SAT 92–100
[2020-06-29 04:49] LABS: Basophils Percent Auto 0.5 % (0.2-1.2); Eosinophils Absolute Auto 0.3 K/mm3 (0-0.3); Eosinophils Percent Auto 3.9 % (0-4.4); Hemoglobin 8.4 g/dL (14.0-18.0); Immature Granulocyte Absolute 0.02 K/mm3 (0.00-0.031); Immature Granulocyte Percent A 0.3 % (0-0.5); Lymphocytes Percent Auto 15.2 % (18.3-44.2); Mean Corpuscular Hemoglobin 27.9 pg (26-34); Monocytes Absolute Auto 0.4 K/mm3 (0.1-0.6); Monocytes Percent Auto 6.4 % (2.6-8.5); Neutrophils Absolute Auto 4.9 K/mm3 (1.3-6.7); Neutrophils Percent Auto 73.7 % (45.5-73.1); Platelet Count Result 235 k/mm3 (150-375); Red Blood Count 3.01 M/mm3 (4.6-6.20); Red Cell Distribution Width 20.3 % (11.5-14.5); White Blood Count 6.6 K/mm3 (4.5-10.0)
[2020-06-29 05:04] LABS: Anion Gap 12.9 mmol/L (7-16); Blood Urea Nitrogen 33 mg/dL (9-20); Calcium 8.7 mg/dL (8.4-10.2); Carbon Dioxide 29 mmol/L (22-30); Chloride 100 mmol/L (98-107); Estimated CRCL calculation 16 ml/min; Estimated Glomerular Filt Rate 13; Glucose 114 mg/dL (75-110); Potassium 3.9 mmol/L (3.4-5.0); Sodium 138 mmol/L (137-145)
[2020-06-29 06:31] LABS: Glucose Point of Care 129 (65-105)
[2020-06-29] MEDS: LACTIC ACID 12% LOTION 225 BTL 1 APPLIC TOPICAL (08:57)
[2020-06-29] MEDS: ASPIRIN 81 MG CHEWABLE TABLET PO (08:58)
[2020-06-29] MEDS: lisinopriL 10 MG TABLET 30 MG PO ×2 (08:58→18:38)
[2020-06-29] MEDS: HEPARIN SODIUM 5,000 UNITS/ML VIAL 5000 UNITS SUB-Q ×2 (08:58→20:11)
[2020-06-29] MEDS: CHOLECALCIFEROL 1,000 UNIT TABLET 1000 UNITS PO (08:58)
[2020-06-29] MEDS: METOPROLOL SUCCINATE EXT REL 100 MG TABCR PO (08:59)
[2020-06-29] MEDS: VITAMIN B CMPLX/VIT C/FOLIC AC 1 CAPSULE 1 CAP PO (08:59)
[2020-06-29] MEDS: PANTOPRAZOLE 40 MG TABLET PO (08:59)
[2020-06-29] MEDS: HEPARIN SODIUM 1,000 UNITS/ML VIAL 1000 UNITS IV PUSH ×2 (14:28→18:15)
[2020-06-29] MEDS: HEPARIN SODIUM 1,000 UNITS/ML VIAL 500 UNITS IV PUSH ×4 (14:31→17:31)
--- NOTE | 2020-06-29 16:54 | PM.PNNEP ---
Progress Note: A&P Assessment and Plan (1) End stage renal disease: Code(s): N18.6 - End stage renal disease Status: Acute Assessment and Plan: the patient has end-stage renal disease. He gets dialysis 3 times a week. he is getting dialysis now. (2) Type 2 diabetes mellitus: Code(s): E11.9 - Type 2 diabetes mellitus without complications Status: Acute Assessment and Plan: The patient is getting Accu-Cheks. He is on no insulin. (3) Hypertension: Code(s): I10 - Essential (primary) hypertension Status: Acute Assessment and Plan: The patient has had hypertension for a long time. His blood pressure is still a bit high. He still has fluid on. Will check his blood pressure and see how he does after dialysis. (4) Coronary artery disease: Code(s): I25.10 - Atherosclerotic heart disease of [place] coronary artery without angina pectoris Status: Acute Assessment and Plan: The patient has coronary artery disease. He had a bypass a while back. He is not having any chest pain No shortness of breath. (5) Erythropoietin deficiency anemia: Code(s): D63.1 - Anemia in chronic kidney disease Status: Acute Assessment and Plan: the patient has anemia. T sat is okay. Retic count is good. He gets Epogen with dialysis. (6) Renal osteodystrophy: Code(s): N25.0 - Renal osteodystrophy Status: Acute Assessment and Plan: Phosphorus level a little bit low. He is off binders. Recheck this next week (7) Peritoneal abscess: Code(s): K65.1 - Peritoneal abscess Status: Acute Assessment and Plan: The patient still has the drain in here. This is not a peritoneal dialysis catheter. This will be removed at [facility]. Subjective Date/time seen: 06/29/20 16:54 Interval history: patient is alert. He is on dialysis and tolerating it well. His blood pressure is 1 50-180. He is set to take off 3L. I asked nursing to take off 3-1/2 if possible. he was seen at 4:15 p.m. The patient is not short of breath. He does have some swelling. Review of Systems Cardiovascular: Cardiovascular: Reports no additional cardiovascular complaints Respiratory: Respiratory: Reports no additional respiratory complaints Gastrointestinal: Gastrointestinal: Reports no additional gastrointestinal complaints Genitourinary: Genitourinary: Reports no additional male genitourinary complaints Exam Narrative: Exam Narrative: WDWN in NAD skin no rash or subcu nodules head ncat lungs clear To auscultation cor reg no rub or gallop abd BS+ nontender and soft ext Trace to 1+ edema. Objective Data Vital Signs Vital Signs: Vital Signs - 24 hr 06/28/20 20:44 06/29/20 04:50 06/29/20 08:59 Temperature 36.7 C 36.2 C L Pulse Rate 79 85 85 Respiratory Rate 18 20 Blood Pressure 158/75 H 153/75 H Pulse Oximetry 97 92 06/29/20 14:00 06/29/20 14:15 06/29/20 14:31 Temperature 36.4 C 37.2 C Pulse Rate 94 94 93 Respiratory Rate 20 16 Blood Pressure 141/80 H 179/108 H 179/109 H Pulse Oximetry 100 06/29/20 14:45 06/29/20 15:00 06/29/20 15:15 Temperature Pulse Rate 91 97 89 Respiratory Rate Blood Pressure 172/100 H 178/88 H 172/82 H Pulse Oximetry 06/29/20 15:30 06/29/20 15:45 06/29/20 16:00 Temperature Pulse Rate 94 88 90 Respiratory Rate Blood Pressure 173/84 H 157/81 H 151/84 H Pulse Oximetry 06/29/20 16:15 06/29/20 16:30 06/29/20 16:45 Temperature Pulse Rate 92 89 84 Respiratory Rate Blood Pressure 161/90 H 183/79 H 154/81 H Pulse Oximetry Intake/Output Intake/Output: Intake & Output 06/26/20 06/27/20 06/28/20 06/29/20 23:59 23:59 23:59 23:59 Intake Total 720 1680 1480 960 Output Total 1999 400 450 Balance 720 -320 1080 510 Meds/Results Medications: Active Medications G
[2020-06-29] MEDS: EPOETIN ALFA-EPBX 10,000 UNITS/ML VIAL 10000 UNITS IV PUSH (17:07)
[2020-06-29] MEDS: AMOXICILLIN 500 MG CAPSULE PO (20:11)
[2020-06-29] MEDS: MIRTAZAPINE 15 MG TABLET PO (20:11)
[2020-06-29] MEDS: ATORVASTATIN 40 MG TABLET PO (20:11)
[2020-06-30 06:00] VITALS: BP 147/84; PULSE 86; RESP 19; TEMP 36; O2SAT 98
[2020-06-30 06:22] LABS: Glucose Point of Care 113 (65-105)
[2020-06-30 08:22] VITALS: PULSE 86
[2020-06-30] MEDS: ASPIRIN 81 MG CHEWABLE TABLET PO (08:22)
[2020-06-30] MEDS: lisinopriL 10 MG TABLET 30 MG PO ×2 (08:22→17:39)
[2020-06-30] MEDS: DIGOXIN TAB 125 MCG TABLET PO (08:22)
[2020-06-30] MEDS: VITAMIN B CMPLX/VIT C/FOLIC AC 1 CAPSULE 1 CAP PO (08:22)
[2020-06-30] MEDS: HEPARIN SODIUM 5,000 UNITS/ML VIAL 5000 UNITS SUB-Q ×2 (08:22→20:17)
[2020-06-30] MEDS: CHOLECALCIFEROL 1,000 UNIT TABLET 1000 UNITS PO (08:22)
[2020-06-30] MEDS: METOPROLOL SUCCINATE EXT REL 100 MG TABCR PO (08:22)
[2020-06-30] MEDS: PANTOPRAZOLE 40 MG TABLET PO (08:22)
[2020-06-30] MEDS: LACTIC ACID 12% LOTION 225 BTL 1 APPLIC TOPICAL (08:30)
[2020-06-30 14:00] VITALS: BP 148/75; PULSE 69; RESP 18; TEMP 36.4; O2SAT 100
--- NOTE | 2020-06-30 15:36 | WPDNEURORHBP ---
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 as documented in my history the patient is much better as for his mental approach is concerned and sees that he is making progress in his weakness fairly well his dialysis patient and is helping him overall denies any fever chills sore throat headache nausea vomiting chest pain or shortness of breath Review of Systems Review of Systems: All systems reviewed & are unremarkable except as noted in HPI and below Functional Status Ambulation Ability Ability to Ambulate 10 Feet: Minimum Assistance X 1 Ability to Ambulate 50 Feet With 2 Turns: Minimum Assistance X 1 Ambulation Assistive Devices: Cane, Brian Transfers Ability Ability to Transfer In/Out of Chair: Total Assistance X 1 Exam Const: General: comfortable and no acute distress HENMT: General nose exam: Normal nares present Mouth: Yes moist mucous membranes Eyes: General: appearance normal, both eyes and all related structures Neck: Neck: supple and no JVD Resp: Effort & Inspection: normal respiratory effort Auscultation: clear to auscultation bilaterally Cardio: Rate: regular rate Rhythm: regular rhythm GI: GI Palp: Yes Soft to palpation Auscultation: normal bowel sounds Skin: General skin exam: normal color and no rashes or lesions noted Neuro: Other: patient's myopathy is getting better his making progress mental status seems to be quite decent Extrem: Other: the right hand is in a splint because of the finger amputation as mentioned Psych: Mental Status: mental status grossly normal Objective Data Vital Signs Vital Signs: Vital Signs - 24 hr 06/29/20 15:45 06/29/20 16:00 06/29/20 16:15 Temperature Pulse Rate 88 90 92 Respiratory Rate Blood Pressure 157/81 H 151/84 H 161/90 H Pulse Oximetry 06/29/20 16:30 06/29/20 16:45 06/29/20 17:00 Temperature Pulse Rate 89 84 80 Respiratory Rate Blood Pressure 183/79 H 154/81 H 152/83 H Pulse Oximetry 06/29/20 17:15 06/29/20 17:30 06/29/20 17:45 Temperature Pulse Rate 80 76 72 Respiratory Rate Blood Pressure 155/82 H 149/74 H 136/83 Pulse Oximetry 06/29/20 18:02 06/29/20 18:05 06/29/20 22:00 Temperature 37.0 C 37.2 C Pulse Rate 70 73 88 Respiratory Rate 16 19 Blood Pressure 148/62 H 148/76 H 138/66 Pulse Oximetry 97 06/30/20 06:00 06/30/20 08:22 06/30/20 14:00 Temperature 36.0 C L 36.4 C L Pulse Rate 86 86 69 Respiratory Rate 19 18 Blood Pressure 147/84 H 148/75 H Pulse Oximetry 98 100 Intake/Output Intake/Output: Intake & Output 06/27/20 06/28/20 06/29/20 06/30/20 23:59 23:59 23:59 23:59 Intake Total 1680 1480 1750 855 Output Total 6435 160 3950 Balance -320 5193 -7903 540 Meds/Results Medications: Active Medications Generic Name Dose Route Start Last Admin Trade Name Freq PRN Reason Stop Dose Admin Acetaminophen 650 mg 06/21/20 18:52 Tylenol Tablet PO Q6H PRN Pain, Mild Amoxicillin 500 mg 06/22/20 21:00 06/29/20 20:11 Amoxil Capsule PO 500 mg HS [facility] Administration Aspirin 81 mg 06/22/20 09:00 06/30/20 08:22 Aspirin Chewable PO 81 mg DAILY RONNIE Administration Atorvastatin Calcium 40 mg 06/21/20 21:00 06/29/20 20:11 Lipitor PO 40 mg HS RONNIE Administration Digoxin 125 mcg 06/23/20 09:00 06/30/20 08:22 Lanoxin Tab PO 125 mcg MoWeFr [facility] Administration Epoetin Eric-epbx 10,000 units 06/24/20 10:30 06/29/20 17:07 Retacrit IV PUSH Not Given TUTHSA [facility] Gabapentin 100 mg 06/22/20 11:07 Neurontin PO Q4H PRN MODERATE PAIN Heparin Sodium (Porcine) 5,000 units 06/21/20 21:00 06/30/20 08:22 Heparin Sodium SUB-Q 5,000 units Q12HR RONNIE Administration Lactic Acid 1 applic 06/22/20 09:00 06/30/20 08:30 Lac-Hydrin Lotion TOPICAL
[2020-06-30] MEDS: MIRTAZAPINE 15 MG TABLET PO (20:17)
[2020-06-30] MEDS: AMOXICILLIN 500 MG CAPSULE PO (20:17)
[2020-06-30] MEDS: ATORVASTATIN 40 MG TABLET PO (20:17)
[2020-06-30 22:00] VITALS: BP 158/84; PULSE 78; RESP 20; TEMP 36.7; O2SAT 98
[2020-07-01] VITALS (22 sets, daily range): BP systolic 127–172; BP diastolic 63–88; PULSE 58–79; RESP 18–20; TEMP 36.2–37; O2SAT 96–100
[2020-07-01 05:10] LABS: Albumin Level 2.9 g/dL (3.5-5.1); Anion Gap 8 mmol/L (8-16); Blood Urea Nitrogen 28 mg/dL (9-20); Calcium 8.2 mg/dL (8.4-10.2); Carbon Dioxide 28 mmol/L (22-30); Chloride 102 mmol/L (98-107); Estimated CRCL calculation 21 ml/min; Estimated Glomerular Filt Rate 14; Glucose 129 mg/dL (75-110); Phosphorus 2.5 mg/dL (2.5-4.5); Potassium 3.3 mmol/L (3.4-5.0); Sodium 138 mmol/L (137-145)
[2020-07-01 06:42] LABS: Glucose Point of Care 127 (65-105)
[2020-07-01] MEDS: HEPARIN SODIUM 5,000 UNITS/ML VIAL 5000 UNITS SUB-Q ×2 (08:52→20:34)
[2020-07-01] MEDS: PANTOPRAZOLE 40 MG TABLET PO (08:53)
[2020-07-01] MEDS: lisinopriL 10 MG TABLET 30 MG PO ×2 (08:53→17:12)
[2020-07-01] MEDS: VITAMIN B CMPLX/VIT C/FOLIC AC 1 CAPSULE 1 CAP PO (08:53)
[2020-07-01] MEDS: ASPIRIN 81 MG CHEWABLE TABLET PO (08:53)
[2020-07-01] MEDS: METOPROLOL SUCCINATE EXT REL 100 MG TABCR PO (08:53)
[2020-07-01] MEDS: CHOLECALCIFEROL 1,000 UNIT TABLET 1000 UNITS PO (08:54)
[2020-07-01] MEDS: LACTIC ACID 12% LOTION 225 BTL 1 APPLIC TOPICAL (08:54)
--- NOTE | 2020-07-01 11:42 | PM.PNNEP ---
Progress Note: A&P Assessment and Plan (1) End stage renal disease: Code(s): N18.6 - End stage renal disease Status: Acute Assessment and Plan: HD today and continue T/T/S schedule for now follow electrolytes, volume status, and clearance (2) Hypertension: Code(s): I10 - Essential (primary) hypertension Status: Acute Assessment and Plan: little high this AM see trend post-dialysis to seen if intervention required (3) Erythropoietin deficiency anemia: Code(s): D63.1 - Anemia in chronic kidney disease Status: Acute Assessment and Plan: due to ESRD Epogen with HD follow trend of H/H (4) Renal osteodystrophy: Code(s): N25.0 - Renal osteodystrophy Status: Acute Assessment and Plan: last phosphorus on the low side holding binders at this time follow calcium and repeat phosphorus levels (5) Peritoneal abscess: Code(s): K65.1 - Peritoneal abscess Status: Acute Assessment and Plan: peritoneal drain in place presumably to be removed at [facility] (since placed there) Will continue to follow. Subjective Date/time seen: 07/01/20 11:42 Appears to be doing reasonably well; working with PT/OT as tolerated; no new issues or concerns voiced at this time; due for dialysis later today. Exam Narrative: Exam Narrative: General: WD/WN male in NAD Heart: normal S1 and S2; no rub Lungs: clear to auscultation Abdomen: soft, nontender, nondistended, positive bowel sounds Extremities: no cyanosis or clubbing; trace - 1+ edema Skin: warm and dry Objective Data Vital Signs Vital Signs: Vital Signs Temp Pulse Resp BP Pulse Ox 07/01/20 09:00 78 18 97 07/01/20 08:53 78 07/01/20 06:00 36.3 C L 79 19 172/82 H 97 06/30/20 22:00 36.7 C 78 20 158/84 H 98 06/30/20 14:00 36.4 C L 69 18 148/75 H 100 Intake/Output Intake/Output: Intake & Output 06/28/20 06/29/20 06/30/20 07/01/20 23:59 23:59 23:59 23:59 Intake Total 1480 1750 905 390 Output Total 400 3950 0 Balance 1080 -2200 905 390 Meds/Results Medications: Active Medications Generic Name Dose Route Start Last Admin Trade Name Freq PRN Reason Stop Dose Admin Acetaminophen 650 mg 06/21/20 18:52 Tylenol Tablet PO Q6H PRN Pain, Mild Amoxicillin 500 mg 06/22/20 21:00 06/30/20 20:17 Amoxil Capsule PO 500 mg HS [facility]ON[facility] Administration Aspirin 81 mg 06/22/20 09:00 07/01/20 08:53 Aspirin Chewable PO 81 mg DAILY [facility] Administration Atorvastatin Calcium 40 mg 06/21/20 21:00 06/30/20 20:17 Lipitor PO 40 mg HS RONNIE Administration Digoxin 125 mcg 06/23/20 09:00 06/30/20 08:22 Lanoxin Tab PO 125 mcg MoWeFr RON[facility] Administration Epoetin Eric-epbx 10,000 units 06/24/20 10:30 06/29/20 17:07 Retacrit IV PUSH Not Given [facility] Gabapentin 100 mg 06/22/20 11:07 Neurontin PO Q4H PRN MODERATE PAIN Heparin Sodium (Porcine) 5,000 units 06/21/20 21:00 07/01/20 08:52 Heparin Sodium SUB-Q 5,000 units Q12HR [facility] Administration Albumin Human 50 mls @ 999 mls/hr 07/01/20 02:12 Albutein IVPB 07/31/20 02:13 Q10M PRN HYPOTENSION Lactic Acid 1 applic 06/22/20 09:00 07/01/20 08:54 Lac-Hydrin Lotion TOPICAL 07/22/20 09:01 1 applic DAILY [facility] Administration Lisinopril 30 mg 06/27/20 17:00 07/01/20 08:53 Prinivil PO 30 mg BIDWM [facility] Administration Metoprolol Succinate 100 mg 06/22/20 09:00 07/01/20 08:53 Toprol Xl PO 100 mg DAILY [facility] Administration Mirtazapine 15 mg 06/21/20 21:00 06/30/20 20:17 Remeron PO 15 mg HS RON[facility] Administration Pantoprazole Sodium 40 mg 06/22/20 09:00 07/01/20 08:53 Protonix PO 40 mg DAILY [facility] Administration Vitamin B Complex/Folic Acid 1 cap 06/22/20 09:00 07/01/20 08:53 Nephrocaps Softgel PO 07/22/20 09:01 1 cap DAILY RONNIE Administration
[2020-07-01] MEDS: EPOETIN ALFA-EPBX 10,000 UNITS/ML VIAL 10000 UNITS IV PUSH (14:38)
--- NOTE | 2020-07-01 16:50 | WPDNEURORHBP ---
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 needing assistance all the activities of daily living he is improving overall and in fact is feeling much better comparing to when he came to us does not have any evidence of infectious process although he does have a rather closed peritoneal dialysis catheter with the drain on it which would be removed at [facility] in the near future when he gets discharged from here overall he has improved denies any headache nausea vomiting chest pain shortness of breath fever chills sore throat Review of Systems Review of Systems: All systems reviewed & are unremarkable except as noted in HPI and below Functional Status Ambulation Ability Ability to Ambulate 10 Feet: Moderate Assistance X 1 Ability to Ambulate 50 Feet With 2 Turns: Moderate Assistance X 1 Ambulation Assistive Devices: Cane, Brian Transfers Ability Ability to Transfer In/Out of Chair: Total Assistance X 1 Exam Const: General: comfortable and no acute distress HENMT: General nose exam: Normal nares present Mouth: Yes moist mucous membranes Eyes: General: appearance normal, both eyes and all related structures Neck: Neck: supple and no JVD Resp: Effort & Inspection: normal respiratory effort Auscultation: clear to auscultation bilaterally Cardio: Rate: regular rate Rhythm: regular rhythm GI: GI Palp: Yes Soft to palpation Auscultation: normal bowel sounds Other: the peritoneal dialysis catheter /the drain is intact no drainage is noted in the back no sign of infectious process Skin: General skin exam: normal color and no rashes or lesions noted Neuro: Other: the patient's proximal and distal strength is improving of course he does have evidence of myopathy and also evidence of peripheral neuropathy from which he is improving overall Extrem: Other: the site of the 3rd middle finger of the right hand removal is clean he has a splint on and moving his other is fairly well Psych: Mental Status: mental status grossly normal Objective Data Vital Signs Vital Signs: Vital Signs - 24 hr 06/30/20 22:00 07/01/20 06:00 07/01/20 08:53 Temperature 36.7 C 36.3 C L Pulse Rate 78 79 78 Respiratory Rate 20 19 Blood Pressure 158/84 H 172/82 H Pulse Oximetry 98 97 07/01/20 09:00 07/01/20 12:45 07/01/20 12:56 Temperature 36.7 C Pulse Rate 78 65 71 Respiratory Rate 18 18 Blood Pressure 149/86 H 156/85 H Pulse Oximetry 97 07/01/20 13:15 07/01/20 13:30 07/01/20 13:52 Temperature Pulse Rate 73 71 61 Respiratory Rate Blood Pressure 140/80 148/82 H 141/73 H Pulse Oximetry 07/01/20 14:00 07/01/20 14:15 07/01/20 14:30 Temperature Pulse Rate 66 64 76 Respiratory Rate Blood Pressure 145/72 H 159/79 H 127/67 Pulse Oximetry 07/01/20 14:45 07/01/20 15:00 07/01/20 15:15 Temperature Pulse Rate 62 61 67 Respiratory Rate Blood Pressure 158/79 H 155/88 H 137/70 Pulse Oximetry 07/01/20 15:30 07/01/20 15:45 07/01/20 16:00 Temperature Pulse Rate 65 61 64 Respiratory Rate Blood Pressure 141/71 H 146/78 H 143/75 H Pulse Oximetry 07/01/20 16:15 07/01/20 16:25 07/01/20 16:35 Temperature 36.5 C Pulse Rate 58 L 61 63 Respiratory Rate 18 Blood Pressure 135/72 136/74 151/81 H Pulse Oximetry Intake/Output Intake/Output: Intake & Output 06/28/20 06/29/20 06/30/20 07/01/20 23:59 23:59 23:59 23:59 Intake Total 1480 1750 905 630 Output Total 400 3950 0 3000 Balance 4094 -6452 905 -8913 Meds/Results Medications: Active Medications Generic Name Dose Route Start Last Admin Trade Name Freq PRN Reason Stop Dose Admin Acetaminophen 650 mg 06/21/20 18:52 Tylenol Tablet PO Q6H PRN Pain, Mild Amoxicillin 500 mg 06/22/20 21:00 06/30/20 20:17 Amoxil Capsule PO 500 mg [facility]
--- NOTE | 2020-07-01 17:02 | PC.NURSE ---
Returned from dialysis at 1700. Dialysis nurse reported: She took 3 L of fluid off, BP 151/81, HR 63. Afebrile, tolerated well.
[2020-07-01] MEDS: HEPARIN SODIUM 1,000 UNITS/ML VIAL 5000 UNITS (17:16)
[2020-07-01] MEDS: MIRTAZAPINE 15 MG TABLET PO (20:34)
[2020-07-01] MEDS: ATORVASTATIN 40 MG TABLET PO (20:34)
[2020-07-01] MEDS: AMOXICILLIN 500 MG CAPSULE PO (20:34)
[2020-07-02 06:00] VITALS: BP 124/67; PULSE 79; RESP 20; TEMP 36.1; O2SAT 94
[2020-07-02 06:26] LABS: Glucose Point of Care 98 (65-105)
[2020-07-02 08:18] VITALS: PULSE 79
[2020-07-02] MEDS: lisinopriL 10 MG TABLET 30 MG PO ×2 (08:18→16:48)
[2020-07-02] MEDS: CHOLECALCIFEROL 1,000 UNIT TABLET 1000 UNITS PO (08:18)
[2020-07-02] MEDS: ASPIRIN 81 MG CHEWABLE TABLET PO (08:18)
[2020-07-02] MEDS: METOPROLOL SUCCINATE EXT REL 100 MG TABCR PO (08:18)
[2020-07-02] MEDS: VITAMIN B CMPLX/VIT C/FOLIC AC 1 CAPSULE 1 CAP PO (08:19)
[2020-07-02] MEDS: PANTOPRAZOLE 40 MG TABLET PO (08:19)
[2020-07-02] MEDS: LACTIC ACID 12% LOTION 225 BTL 1 APPLIC TOPICAL (08:19)
[2020-07-02] MEDS: HEPARIN SODIUM 5,000 UNITS/ML VIAL 5000 UNITS SUB-Q ×2 (10:48→20:44)
[2020-07-02 14:00] VITALS: BP 149/70; PULSE 62; RESP 20; TEMP 35.9; O2SAT 100
[2020-07-02] MEDS: AMOXICILLIN 500 MG CAPSULE PO (20:44)
[2020-07-02] MEDS: ATORVASTATIN 40 MG TABLET PO (20:44)
[2020-07-02] MEDS: MIRTAZAPINE 15 MG TABLET PO (20:45)
[2020-07-02 21:54] VITALS: BP 153/72; PULSE 70; RESP 18; TEMP 35.5; O2SAT 100
[2020-07-03 06:00] VITALS: BP 136/63; PULSE 84; RESP 18; TEMP 35.7; O2SAT 94
[2020-07-03 06:45] LABS: Glucose Point of Care 82 (65-105)
[2020-07-03 08:00] VITALS: PULSE 68; RESP 16; O2SAT 97
[2020-07-03 08:44] VITALS: PULSE 80
[2020-07-03] MEDS: lisinopriL 10 MG TABLET 30 MG PO ×2 (08:44→17:20)
[2020-07-03] MEDS: METOPROLOL SUCCINATE EXT REL 100 MG TABCR PO (08:44)
[2020-07-03 08:45] VITALS: PULSE 80
[2020-07-03] MEDS: HEPARIN SODIUM 5,000 UNITS/ML VIAL 5000 UNITS SUB-Q ×2 (08:45→20:08)
[2020-07-03] MEDS: CHOLECALCIFEROL 1,000 UNIT TABLET 1000 UNITS PO (08:45)
[2020-07-03] MEDS: PANTOPRAZOLE 40 MG TABLET PO (08:45)
[2020-07-03] MEDS: ASPIRIN 81 MG CHEWABLE TABLET PO (08:45)
[2020-07-03] MEDS: DIGOXIN TAB 125 MCG TABLET PO (08:45)
[2020-07-03] MEDS: LACTIC ACID 12% LOTION 225 BTL 1 APPLIC TOPICAL (08:45)
[2020-07-03] MEDS: VITAMIN B CMPLX/VIT C/FOLIC AC 1 CAPSULE 1 CAP PO (08:46)
--- NOTE | 2020-07-03 10:14 | WPDNEURORHBP ---
Subjective Date/time seen: 07/03/20 10:14 CRD with hemodialysis and significant myopathysecondary to uremia,also Hypertension,CHF, with coronary artey disease,DM with neuropathy and peripheral vascular disease Review of Systems Review of Systems: All systems reviewed & are unremarkable except as noted in HPI and below Functional Status Ambulation Ability Ability to Ambulate 10 Feet: Minimum Assistance X 1 Ability to Ambulate 50 Feet With 2 Turns: Minimum Assistance X 1 Ambulation Assistive Devices: Cane, Brian Transfers Ability Ability to Transfer In/Out of Chair: Total Assistance X 1 Exam Const: General: cooperative, comfortable, no acute distress, alert and awake HENMT: Head: normal to inspection General nose exam: Normal external nose present and No nasal discharge present Face and sinus: normal facial exam Mouth: Yes Normal oral and palatal mucosa present, Yes tongue normal, Yes moist mucous membranes and Yes Abnormal oral and palatal mucosa present Eyes: General: appearance normal, both eyes and all related structures Neck: Neck: full ROM Resp: Effort & Inspection: normal respiratory effort Auscultation: clear to auscultation bilaterally GI: Auscultation: normal bowel sounds Neuro: General: oriented to person, oriented to place and moves all extremities Cranial nerves: Yes Equal, round and reactive pupils present, Yes Bilaterally intact EOM present, Yes Nystagmus not present, Yes Normal facial strength present, Yes Midline tongue present and Yes Ability to bilaterally elevate shoulders present Cognition (Neuro): normal cognition Speech: normal speech Gait exam (Neuro): Unable to assess gait Motor exam (neuro): Abnormal motor strength present Sensory Exam: Sensory deficit (Neuro) Plantar Reflex Responses: downgoing: bilateral Extrem: General: normal to inspection Psych: Appearance: grossly normal Objective Data Vital Signs Vital Signs: Vital Signs - 24 hr 07/02/20 14:00 07/02/20 21:54 07/03/20 06:00 Temperature 35.9 C L 35.5 C L 35.7 C L Pulse Rate 62 70 84 Respiratory Rate 20 18 18 Blood Pressure 149/70 H 153/72 H 136/63 Pulse Oximetry 100 100 94 07/03/20 08:44 07/03/20 08:45 Temperature Pulse Rate 80 80 Respiratory Rate Blood Pressure Pulse Oximetry Intake/Output Intake/Output: Intake & Output 06/30/20 07/01/20 07/02/20 07/03/20 23:59 23:59 23:59 23:59 Intake Total 905 1470 720 600 Output Total 0 3000 0 Balance 905 -1530 720 600 Meds/Results Medications: Active Medications Generic Name Dose Route Start Last Admin Trade Name Freq PRN Reason Stop Dose Admin Acetaminophen 650 mg 06/21/20 18:52 Tylenol Tablet PO Q6H PRN Pain, Mild Amoxicillin 500 mg 06/22/20 21:00 07/02/20 20:44 Amoxil Capsule PO 500 mg HS [facility] Administration Aspirin 81 mg 06/22/20 09:00 07/03/20 08:45 Aspirin Chewable PO 81 mg DAILY [facility] Administration Atorvastatin Calcium 40 mg 06/21/20 21:00 07/02/20 20:44 Lipitor PO 40 mg HS [facility] Administration Digoxin 125 mcg 06/23/20 09:00 07/03/20 08:45 Lanoxin Tab PO 125 mcg MoWeFr [facility] Administration Epoetin Eric-epbx 10,000 units 06/24/20 10:30 07/01/20 14:38 Retacrit IV PUSH 10,000 units T[facility]SA [facility] Administration Gabapentin 100 mg 06/22/20 11:07 Neurontin PO Q4H PRN MODERATE PAIN Heparin Sodium (Porcine) 5,000 units 06/21/20 21:00 07/03/20 08:45 Heparin Sodium SUB-Q 5,000 units Q12HR [facility] Administration Albumin Human 50 mls @ 999 mls/hr 07/01/20 02:12 Albutein IVPB 07/31/20 02:13 Q10M PRN HYPOTENSION Lactic Acid 1 applic 06/22/20 09:00 07/03/20 08:45 Lac-Hydrin Lotion TOPICAL 07/22/20 09:01 1 applic DAILY [facility] Administration Lisinopril 30 mg 06/27/20 17:00 07/03/20 08:44 Prinivil PO 30 mg BIDWM [facility] Administration Metoprolol Succinate 100 mg 06/22/20 09:00 07/03/20 08:44 Toprol Xl PO 100 mg DAILY [facility]
[2020-07-03 14:00] VITALS: BP 157/76; PULSE 72; RESP 16; TEMP 36.1; O2SAT 100
[2020-07-03] MEDS: ATORVASTATIN 40 MG TABLET PO (20:08)
[2020-07-03] MEDS: AMOXICILLIN 500 MG CAPSULE PO (20:08)
[2020-07-03] MEDS: MIRTAZAPINE 15 MG TABLET PO (20:08)
[2020-07-03 22:00] VITALS: BP 145/76; PULSE 85; RESP 18; TEMP 36.4; O2SAT 97
[2020-07-04] VITALS (22 sets, daily range): BP systolic 135–166; BP diastolic 59–96; PULSE 68–86; RESP 16–20; TEMP 36.3–37; O2SAT 96–100
[2020-07-04 06:38] LABS: Glucose Point of Care 98 (65-105)
--- NOTE | 2020-07-04 09:40 | P.PNNP_ITS ---
Progress Note: A&P Assessment and Plan (1) End stage renal disease: Code(s): N18.6 - End stage renal disease Status: Acute Assessment and Plan: * HD today and continue T/T/S schedule for now * follow electrolytes, volume status, and clearance (2) Hypertension: Code(s): I10 - Essential (primary) hypertension Status: Acute Assessment and Plan: * little high this AM * see trend post-dialysis to seen if intervention required (3) Erythropoietin deficiency anemia: Code(s): D63.1 - Anemia in chronic kidney disease Status: Acute Assessment and Plan: * due to ESRD * Epogen with HD * follow trend of H/H (4) Renal osteodystrophy: Code(s): N25.0 - Renal osteodystrophy Status: Acute Assessment and Plan: * last phosphorus on the low side * holding binders at this time * follow calcium and repeat phosphorus levels (5) Peritoneal abscess: Code(s): K65.1 - Peritoneal abscess Status: Acute Assessment and Plan: * peritoneal drain in place * presumably to be removed at [facility] (since placed there) Will continue to follow. Subjective Date/time seen: 07/04/20 09:40 Continues to work with PT/OT as tolerated; no new issues or problems voiced on my visit; due for dialysis this afternoon. Exam Narrative: Exam Narrative: General: WD/WN male in NAD Heart: normal S1 and S2; no rub Lungs: clear to auscultation Abdomen: soft, nontender, nondistended, positive bowel sounds Extremities: no cyanosis or clubbing; trace - 1+ edema Skin: warm and intact Objective Data Vital Signs Vital Signs: Vital Signs Temp Pulse Resp BP Pulse Ox 07/04/20 06:00 36.5 C 86 20 156/85 H 96 07/03/20 22:00 36.4 C 85 18 145/76 H 97 07/03/20 14:00 36.1 C L 72 16 157/76 H 100 Intake/Output Intake/Output: Intake & Output 07/01/20 07/02/20 07/03/20 07/04/20 23:59 23:59 23:59 23:59 Intake Total 0583 045 0429 120 Output Total 3000 0 250 0 Balance -6446 248 5369 120 Meds/Results Medications: Active Medications Generic Name Dose Route Start Last Admin Trade Name Freq PRN Reason Stop Dose Admin Acetaminophen 650 mg 06/21/20 18:52 Tylenol Tablet PO Q6H PRN Pain, Mild Amoxicillin 500 mg 06/22/20 21:00 07/03/20 20:08 Amoxil Capsule PO 500 mg HS [facility] Administration Aspirin 81 mg 06/22/20 09:00 07/03/20 08:45 Aspirin Chewable PO 81 mg DAILY [facility] Administration Atorvastatin Calcium 40 mg 06/21/20 21:00 07/03/20 20:08 Lipitor PO 40 mg HS [facility] Administration Digoxin 125 mcg 06/23/20 09:00 07/03/20 08:45 Lanoxin Tab PO 125 mcg MoWeFr [facility] Administration Epoetin Eric-epbx 10,000 units 06/24/20 10:30 07/01/20 14:38 Retacrit IV PUSH 10,000 units [facility] Administration Gabapentin 100 mg 06/22/20 11:07 Neurontin PO Q4H PRN MODERATE PAIN Heparin Sodium (Porcine) 5,000 units 06/21/20 21:00 07/03/20 20:08 Heparin Sodium SUB-Q 5,000 units Q12HR [facility] Administration Albumin Human 50 mls @ 999 mls/hr 07/01/20 02:12 Alb
--- NOTE | 2020-07-04 09:40 | PM.PNNEP ---
Progress Note: A&P Assessment and Plan (1) End stage renal disease: Code(s): N18.6 - End stage renal disease Status: Acute Assessment and Plan: HD today and continue T/T/S schedule for now follow electrolytes, volume status, and clearance (2) Hypertension: Code(s): I10 - Essential (primary) hypertension Status: Acute Assessment and Plan: little high this AM see trend post-dialysis to seen if intervention required (3) Erythropoietin deficiency anemia: Code(s): D63.1 - Anemia in chronic kidney disease Status: Acute Assessment and Plan: due to ESRD Epogen with HD follow trend of H/H (4) Renal osteodystrophy: Code(s): N25.0 - Renal osteodystrophy Status: Acute Assessment and Plan: last phosphorus on the low side holding binders at this time follow calcium and repeat phosphorus levels (5) Peritoneal abscess: Code(s): K65.1 - Peritoneal abscess Status: Acute Assessment and Plan: peritoneal drain in place presumably to be removed at [facility] (since placed there) Will continue to follow. Subjective Date/time seen: 07/04/20 09:40 Continues to work with PT/OT as tolerated; no new issues or problems voiced on my visit; due for dialysis this afternoon. Exam Narrative: Exam Narrative: General: WD/WN male in NAD Heart: normal S1 and S2; no rub Lungs: clear to auscultation Abdomen: soft, nontender, nondistended, positive bowel sounds Extremities: no cyanosis or clubbing; trace - 1+ edema Skin: warm and intact Objective Data Vital Signs Vital Signs: Vital Signs Temp Pulse Resp BP Pulse Ox 07/04/20 06:00 36.5 C 86 20 156/85 H 96 07/03/20 22:00 36.4 C 85 18 145/76 H 97 07/03/20 14:00 36.1 C L 72 16 157/76 H 100 Intake/Output Intake/Output: Intake & Output 07/01/20 07/02/20 07/03/20 07/04/20 23:59 23:59 23:59 23:59 Intake Total 7858 208 1842 120 Output Total 3000 0 250 0 Balance -5807 142 9197 120 Meds/Results Medications: Active Medications Generic Name Dose Route Start Last Admin Trade Name Freq PRN Reason Stop Dose Admin Acetaminophen 650 mg 07/29/20 18:52 Tylenol Tablet PO Q6H PRN Pain, Mild Amoxicillin 500 mg 06/22/20 21:00 07/03/20 20:08 Amoxil Capsule PO 500 mg HS [facility] Administration Aspirin 81 mg 06/22/20 09:00 07/03/20 08:45 Aspirin Chewable PO 81 mg DAILY [facility] Administration Atorvastatin Calcium 40 mg 06/21/20 21:00 07/03/20 20:08 Lipitor PO 40 mg HS [facility] Administration Digoxin 125 mcg 06/23/20 09:00 07/03/20 08:45 Lanoxin Tab PO 125 mcg MoWeFr [facility] Administration Epoetin Eric-epbx 10,000 units 06/24/20 10:30 07/01/20 14:38 Retacrit IV PUSH 10,000 units [facility] Administration Gabapentin 100 mg 06/22/20 11:07 Neurontin PO Q4H PRN MODERATE PAIN Heparin Sodium (Porcine) 5,000 units 06/21/20 21:00 07/03/20 20:08 Heparin Sodium SUB-Q 5,000 units Q12HR [facility] Administration Albumin Human 50 mls @ 999 mls/hr 07/01/20 02:12 Albutein IVPB 07/31/20 02:13 Q10M PRN HYPOTENSION Lactic Acid 1 applic 06/22/20 09:00 07/03/20 08:45 Lac-Hydrin Lotion TOPICAL 07/22/20 09:01 1 applic DAILY [facility] Administration Lisinopril 30 mg 06/27/20 17:00 07/03/20 17:20 Prinivil PO 30 mg BIDWM [facility] Administration Metoprolol Succinate 100 mg 06/22/20 09:00 07/03/20 08:44 Toprol Xl PO 100 mg DAILY [facility] Administration Mirtazapine 15 mg 06/21/20 21:00 07/03/20 20:08 Remeron PO 15 mg HS [facility] Administration Pantoprazole Sodium 40 mg 06/22/20 09:00 07/03/20 08:45 Protonix PO 40 mg DAILY [facility] Administration Vitamin B Complex/Folic Acid 1 cap 06/22/20 09:00 07/03/20 08:46 Nephrocaps Softgel PO 07/22/20 09:01 1 cap DAILY [facility] Administration Vitamin D 1,000 unit 06/22/20 09:00 07/03/20 08:45
[2020-07-04] MEDS: VITAMIN B CMPLX/VIT C/FOLIC AC 1 CAPSULE 1 CAP PO (09:59)
[2020-07-04] MEDS: PANTOPRAZOLE 40 MG TABLET PO (09:59)
[2020-07-04] MEDS: lisinopriL 10 MG TABLET 30 MG PO ×2 (10:00→18:17)
[2020-07-04] MEDS: ASPIRIN 81 MG CHEWABLE TABLET PO (10:00)
[2020-07-04] MEDS: HEPARIN SODIUM 5,000 UNITS/ML VIAL 5000 UNITS SUB-Q ×2 (10:00→20:49)
[2020-07-04] MEDS: CHOLECALCIFEROL 1,000 UNIT TABLET 1000 UNITS PO (10:00)
[2020-07-04] MEDS: METOPROLOL SUCCINATE EXT REL 100 MG TABCR PO (10:00)
[2020-07-04] MEDS: LACTIC ACID 12% LOTION 225 BTL 1 APPLIC TOPICAL (10:01)
--- NOTE | 2020-07-04 11:29 | WPDNEURORHBP ---
Subjective Date/time seen: 07/04/20 11:29 Interval history: this 49-year-old is here due to myopathy which is secondary to the significant uremia he has been switched over from the peritoneal dialysis to the hemodialysis is tolerating it fairly well he has made progress quite a bit as for as the therapy is concerned except the hip girdle weakness which is still needs to be worked on because of the dialysis catheter of the right arm and also amputation of the right middle finger the patient is nonweightbearing and has been using the brian cane to ambulate which he is doing fairly well family training is being done and patient does not have any new specific complaint complaints particularly no chest pain on shortness of breath fever chills or sore throat Review of Systems Review of Systems: All systems reviewed & are unremarkable except as noted in HPI and below Functional Status Ambulation Ability Ability to Ambulate 10 Feet: Contact Guard Ability to Ambulate 50 Feet With 2 Turns: Contact Guard Ambulation Assistive Devices: Cane, Brian Transfers Ability Ability to Transfer In/Out of Chair: Total Assistance X 1 Exam Const: General: comfortable and no acute distress HENMT: General nose exam: Normal nares present Mouth: Yes moist mucous membranes Eyes: General: appearance normal, both eyes and all related structures Neck: Neck: supple and no JVD Resp: Effort & Inspection: normal respiratory effort Auscultation: clear to auscultation bilaterally Cardio: Rate: regular rate Rhythm: regular rhythm GI: GI Palp: Yes Soft to palpation Auscultation: normal bowel sounds Skin: General skin exam: normal color and no rashes or lesions noted Neuro: Other: patient is awake alert well oriented time place and person has normal speech and language function normal cranial examination and improving myopathy the dialysis catheter seems to be okay and functioning well Extrem: Other: the amputation site of the right middle finger is clean Psych: Mental Status: mental status grossly normal Objective Data Vital Signs Vital Signs: Vital Signs - 24 hr 07/03/20 14:00 07/03/20 22:00 07/04/20 06:00 Temperature 36.1 C L 36.4 C 36.5 C Pulse Rate 72 85 86 Respiratory Rate 16 18 20 Blood Pressure 157/76 H 145/76 H 156/85 H Pulse Oximetry 100 97 96 07/04/20 10:00 Temperature Pulse Rate 86 Respiratory Rate Blood Pressure Pulse Oximetry Intake/Output Intake/Output: Intake & Output 07/01/20 07/02/20 07/03/20 07/04/20 23:59 23:59 23:59 23:59 Intake Total 4867 530 4507 360 Output Total 3000 0 250 0 Balance -0714 852 7680 360 Meds/Results Medications: Active Medications Generic Name Dose Route Start Last Admin Trade Name Freq PRN Reason Stop Dose Admin Acetaminophen 650 mg 06/21/20 18:52 Tylenol Tablet PO Q6H PRN Pain, Mild Amoxicillin 500 mg 06/22/20 21:00 07/03/20 20:08 Amoxil Capsule PO 500 mg HS [facility] Administration Aspirin 81 mg 06/22/20 09:00 07/04/20 10:00 Aspirin Chewable PO 81 mg DAILY [facility] Administration Atorvastatin Calcium 40 mg 06/21/20 21:00 07/03/20 20:08 Lipitor PO 40 mg HS [facility] Administration Digoxin 125 mcg 06/23/20 09:00 07/03/20 08:45 Lanoxin Tab PO 125 mcg MoWeFr [facility] Administration Epoetin Eric-epbx 10,000 units 06/24/20 10:30 07/01/20 14:38 Retacrit IV PUSH 10,000 units [facility]SA [facility] Administration Gabapentin 100 mg 06/22/20 11:07 Neurontin PO Q4H PRN MODERATE PAIN Heparin Sodium (Porcine) 5,000 units 06/21/20 21:00 07/04/20 10:00 Heparin Sodium SUB-Q 5,000 units Q12HR [facility] Administration Albumin Human 50 mls @ 999 mls/hr 07/01/20 02:12 Albutein IVPB 07/31/20 02:13 Q10M PRN HYPOTENSION Lactic Acid 1 applic 06/22/20 09:00 07/04/20 10:01 Lac-Hydrin Lotion TOPICAL 07/22/20 09:01 1 applic DAILY [facility] Administration Lisinopril 30 mg 06/27/20 17:00 07/04/20 10:00 Priniv
--- NOTE | 2020-07-04 13:06 | PCNFU ---
Nutrition Follow-Up Complete: Involuntary weight loss related to multiple medical issues requiring prolonged hospitalization as evidenced by patient reporting significant weight loss of uncertain amount. Goal: Patient to consume 75% of meals and halt weight loss. Patient is meeting goal at 100% meal consumption. Pt current nutrition is DBCC/Renal. Nutrition recommendation: Agree with current recommendations. Last recorded weight is 98.8 kg. Bowel Motility: last bowel movement reported on 07/04/20 Labs Reviewed: Hgb (8.4) Hct (28) Alb (2.9) GFR (14) BUN (28) Cr (4.6) Glu (129) Meds Noted: albumin, amoxicillin, remeron, protonix, nephrocaps, vitamin D, toprol, vitamin B complex, prinivil Additional Notes: Patient reports liking the food. States appetite is strong eating all the meals. Did not report any diet related concerns/questions Follow up every 7 days.
--- NOTE | 2020-07-04 13:25 | PCNSR ---
On 07/04/20, the student, Dario Sherwood, provided care and completed [facility] documentation on this patient. I have reviewed the student's documentation and agree with the findings.
[2020-07-04 13:41] LABS: Basophils Absolute Auto 0.1 K/mm3 (0.0-0.1); Basophils Percent Auto 0.8 % (0.2-1.2); Eosinophils Absolute Auto 0.3 K/mm3 (0-0.3); Eosinophils Percent Auto 4.3 % (0-4.4); Hematocrit 29.9 % (42.0-52.0); Immature Granulocyte Absolute 0.02 K/mm3 (0.00-0.031); Immature Granulocyte Percent A 0.3 % (0-0.5); Lymphocytes Absolute Auto 1.02 K/mm3 (0.9-3.2); Lymphocytes Percent Auto 16.9 % (18.3-44.2); Mean Corpuscular HGB Conc 30.1 g/dl (32-36); Mean Corpuscular Volume 92.9 fl (80-100); Mean Platelet Volume 10.4 fl (7.4-10.4); Monocytes Absolute Auto 0.5 K/mm3 (0.1-0.6); Monocytes Percent Auto 8.3 % (2.6-8.5); Neutrophils Absolute Auto 4.2 K/mm3 (1.3-6.7); Neutrophils Percent Auto 69.4 % (45.5-73.1); Platelet Count Result 251 k/mm3 (150-375); Red Blood Count 3.22 M/mm3 (4.6-6.20); Red Cell Distribution Width 19.3 % (11.5-14.5); White Blood Count 6.1 K/mm3 (4.5-10.0)
[2020-07-04 13:51] LABS: Albumin Level 3.5 g/dL (3.5-5.1); Anion Gap 12 mmol/L (8-16); Blood Urea Nitrogen 30 mg/dL (9-20); Calcium 8.5 mg/dL (8.4-10.2); Carbon Dioxide 28 mmol/L (22-30); Chloride 97 mmol/L (98-107); Estimated CRCL calculation 16 ml/min; Estimated Glomerular Filt Rate 11; Glucose 125 mg/dL (75-110); Phosphorus 2.7 mg/dL (2.5-4.5); Potassium 3.5 mmol/L (3.4-5.0); Sodium 137 mmol/L (137-145)
[2020-07-04] MEDS: HEPARIN SODIUM 1,000 UNITS/ML VIAL 1000 UNITS IV PUSH ×2 (14:12→18:05)
[2020-07-04] MEDS: HEPARIN SODIUM 1,000 UNITS/ML VIAL 500 UNITS IV PUSH ×4 (14:15→17:15)
[2020-07-04] MEDS: EPOETIN ALFA-EPBX 10,000 UNITS/ML VIAL 10000 UNITS IV PUSH (16:59)
--- NOTE | 2020-07-04 18:20 | PC.NURSE ---
patient transferred back to [facility] from dialysis at 1815. Removed 4 L fluid. Vitals 145/81, 71, 16, 98.1. Weight before dialysis 100 and after dialysis 95.6
[2020-07-04] MEDS: AMOXICILLIN 500 MG CAPSULE PO (20:49)
[2020-07-04] MEDS: MIRTAZAPINE 15 MG TABLET PO (20:49)
[2020-07-04] MEDS: ATORVASTATIN 40 MG TABLET PO (20:49)
[2020-07-05 06:00] VITALS: BP 147/80; PULSE 80; RESP 19; TEMP 36.3; O2SAT 97
[2020-07-05 06:35] LABS: Glucose Point of Care 89 (65-105)
[2020-07-05] MEDS: lisinopriL 10 MG TABLET 30 MG PO ×2 (08:48→17:33)
[2020-07-05] MEDS: ASPIRIN 81 MG CHEWABLE TABLET PO (08:48)
[2020-07-05 08:49] VITALS: PULSE 80
[2020-07-05] MEDS: DIGOXIN TAB 125 MCG TABLET PO (08:49)
[2020-07-05] MEDS: METOPROLOL SUCCINATE EXT REL 100 MG TABCR PO (08:49)
[2020-07-05] MEDS: HEPARIN SODIUM 5,000 UNITS/ML VIAL 5000 UNITS SUB-Q ×2 (08:49→20:06)
[2020-07-05] MEDS: CHOLECALCIFEROL 1,000 UNIT TABLET 1000 UNITS PO (08:49)
[2020-07-05] MEDS: LACTIC ACID 12% LOTION 225 BTL 1 APPLIC TOPICAL (08:49)
[2020-07-05] MEDS: VITAMIN B CMPLX/VIT C/FOLIC AC 1 CAPSULE 1 CAP PO (08:50)
[2020-07-05] MEDS: PANTOPRAZOLE 40 MG TABLET PO (08:50)
--- NOTE | 2020-07-05 13:35 | WPDNEURORHBP ---
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 he is tolerating the hemodialysis very well walking 50 feet and different session and definitely significantly better than he was several days ago denies any headache nausea vomiting chest pain shortness of breath fever chills sore throat Review of Systems Review of Systems: All systems reviewed & are unremarkable except as noted in HPI and below Functional Status Ambulation Ability Ability to Ambulate 10 Feet: Contact Guard Ability to Ambulate 50 Feet With 2 Turns: Contact Guard Ambulation Assistive Devices: Cane, Brian Transfers Ability Ability to Transfer In/Out of Chair: Total Assistance X 1 Exam Const: General: comfortable and no acute distress HENMT: General nose exam: Normal nares present Mouth: Yes moist mucous membranes Eyes: General: appearance normal, both eyes and all related structures Neck: Neck: supple and no JVD Resp: Effort & Inspection: normal respiratory effort Auscultation: clear to auscultation bilaterally Cardio: Rate: regular rate Rhythm: regular rhythm GI: GI Palp: Yes Soft to palpation Auscultation: normal bowel sounds Skin: General skin exam: normal color and no rashes or lesions noted Neuro: Other: the patient is awake and alert well oriented speech and language functions are normal his strength in both upper lower extremities is improving particularly the proximal weakness of the lower extremities also improving still needing some assistance in the activities of daily living Extrem: General: normal to inspection Psych: Mental Status: mental status grossly normal Objective Data Vital Signs Vital Signs: Vital Signs - 24 hr 07/04/20 14:00 07/04/20 14:15 07/04/20 14:30 Temperature 36.3 C L Pulse Rate 70 76 78 Respiratory Rate 20 Blood Pressure 149/68 H 166/89 H 162/96 H Pulse Oximetry 100 07/04/20 14:45 07/04/20 15:00 07/04/20 15:15 Temperature Pulse Rate 80 76 75 Respiratory Rate Blood Pressure 141/92 H 138/79 141/80 H Pulse Oximetry 07/04/20 15:30 07/04/20 15:45 07/04/20 16:00 Temperature Pulse Rate 73 74 86 Respiratory Rate Blood Pressure 150/89 H 143/81 H 135/80 Pulse Oximetry 07/04/20 16:15 07/04/20 16:30 07/04/20 17:00 Temperature Pulse Rate 80 69 69 Respiratory Rate Blood Pressure 153/84 H 148/82 H 137/80 Pulse Oximetry 07/04/20 17:15 07/04/20 17:30 07/04/20 17:45 Temperature Pulse Rate 68 70 68 Respiratory Rate Blood Pressure 149/59 H 142/78 H 151/79 H Pulse Oximetry 07/04/20 17:49 07/04/20 17:55 07/04/20 22:00 Temperature 36.7 C 36.7 C Pulse Rate 68 71 76 Respiratory Rate 16 20 Blood Pressure 147/81 H 145/81 H 137/68 Pulse Oximetry 100 07/05/20 06:00 07/05/20 08:49 Temperature 36.3 C L Pulse Rate 80 80 Respiratory Rate 19 Blood Pressure 147/80 H Pulse Oximetry 97 Intake/Output Intake/Output: Intake & Output 07/02/20 07/03/20 07/04/20 07/05/20 23:59 23:59 23:59 23:59 Intake Total 720 2240 840 700 Output Total 0 250 4000 0 Balance 720 1989 -3160 700 Meds/Results Medications: Active Medications Generic Name Dose Route Start Last Admin Trade Name Freq PRN Reason Stop Dose Admin Acetaminophen 650 mg 06/21/20 18:52 Tylenol Tablet PO Q6H PRN Pain, Mild Amoxicillin 500 mg 06/22/20 21:00 07/04/20 20:49 Amoxil Capsule PO 500 mg HS RONNIE Administration Aspirin 81 mg 06/22/20 09:00 07/05/20 08:48 Aspirin Chewable PO 81 mg DAILY RONNIE Administration Atorvastatin Calcium 40 mg 06/21/20 21:00 07/04/20 20:49 Lipitor PO 40 mg HS RONNIE Administration Digoxin 125 mcg 06/23/20 09:00 07/05/20 08:49 Lanoxin Tab PO 125 mcg MoWeFr RONNIE Administration Epoetin Eric-epbx 10,000 units 06/24/20 10:30 07/04/20 16:59 Retacrit IV PUSH
[2020-07-05 14:00] VITALS: BP 149/68; PULSE 70; RESP 20; TEMP 36.2; O2SAT 100
[2020-07-05 20:00] VITALS: PULSE 91; RESP 18; O2SAT 94
[2020-07-05] MEDS: AMOXICILLIN 500 MG CAPSULE PO (20:06)
[2020-07-05] MEDS: ATORVASTATIN 40 MG TABLET PO (20:06)
[2020-07-05] MEDS: MIRTAZAPINE 15 MG TABLET PO (20:06)
[2020-07-05 22:00] VITALS: BP 123/67; PULSE 91; RESP 18; TEMP 36.4; O2SAT 94
[2020-07-06] VITALS (23 sets, daily range): BP systolic 131–155; BP diastolic 64–87; PULSE 62–91; RESP 18–20; TEMP 36–36.8; O2SAT 95–97
[2020-07-06 05:12] LABS: Basophils Percent Auto 0.9 % (0.2-1.2); Eosinophils Absolute Auto 0.3 K/mm3 (0-0.3); Eosinophils Percent Auto 6.1 % (0-4.4); Hematocrit 27.6 % (42.0-52.0); Hemoglobin 8.4 g/dL (14.0-18.0); Immature Granulocyte Absolute 0.03 K/mm3 (0.00-0.031); Immature Granulocyte Percent A 0.7 % (0-0.5); Lymphocytes Percent Auto 23.9 % (18.3-44.2); Mean Corpuscular HGB Conc 30.4 g/dl (32-36); Mean Corpuscular Hemoglobin 28.2 pg (26-34); Mean Corpuscular Volume 92.6 fl (80-100); Mean Platelet Volume 9.8 fl (7.4-10.4); Monocytes Absolute Auto 0.5 K/mm3 (0.1-0.6); Monocytes Percent Auto 11.7 % (2.6-8.5); Neutrophils Absolute Auto 2.6 K/mm3 (1.3-6.7); Neutrophils Percent Auto 56.7 % (45.5-73.1); Platelet Count Result 220 k/mm3 (150-375); Red Blood Count 2.98 M/mm3 (4.6-6.20); Red Cell Distribution Width 19.1 % (11.5-14.5); White Blood Count 4.6 K/mm3 (4.5-10.0)
[2020-07-06 05:23] LABS: Potassium 3.3 mmol/L (3.4-5.0)
[2020-07-06 05:26] LABS: Anion Gap 9 mmol/L (8-16); Blood Urea Nitrogen 25 mg/dL (9-20); Calcium 8.2 mg/dL (8.4-10.2); Carbon Dioxide 28 mmol/L (22-30); Chloride 99 mmol/L (98-107); Estimated CRCL calculation 20 ml/min; Estimated Glomerular Filt Rate 13; Glucose 91 mg/dL (75-110); Sodium 136 mmol/L (137-145)
[2020-07-06 06:15] LABS: Glucose Point of Care 89 (65-105)
[2020-07-06] MEDS: lisinopriL 10 MG TABLET 30 MG PO ×2 (08:39→19:05)
[2020-07-06] MEDS: ASPIRIN 81 MG CHEWABLE TABLET PO (08:39)
[2020-07-06] MEDS: CHOLECALCIFEROL 1,000 UNIT TABLET 1000 UNITS PO (08:39)
[2020-07-06] MEDS: HEPARIN SODIUM 5,000 UNITS/ML VIAL 5000 UNITS SUB-Q ×2 (08:39→20:55)
[2020-07-06] MEDS: METOPROLOL SUCCINATE EXT REL 100 MG TABCR PO (08:40)
[2020-07-06] MEDS: VITAMIN B CMPLX/VIT C/FOLIC AC 1 CAPSULE 1 CAP PO (08:40)
[2020-07-06] MEDS: PANTOPRAZOLE 40 MG TABLET PO (08:40)
[2020-07-06] MEDS: LACTIC ACID 12% LOTION 225 BTL 1 APPLIC TOPICAL (08:40)
--- NOTE | 2020-07-06 12:03 | WPDNEURORHBP ---
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 he is walking now almost 150 feet and doing remarkably well comparing to when he came to us is looking forward to be going home with the home health will continue the amoxicillin for his infectious process at the time he had the peritonitis and the peritoneal abscess he will have the peritoneal drain removed and was removed this hospital and he is aware of it likewise he has to follow-up with the peace officer when she gets Friday is Review of Systems Review of Systems: All systems reviewed & are unremarkable except as noted in HPI and below Functional Status Ambulation Ability Ability to Ambulate 10 Feet: Standby Assistance Ability to Ambulate 50 Feet With 2 Turns: Standby Assistance Ability to Ambulate 150 Feet: Standby Assistance Ambulation Assistive Devices: Cane, Brian Transfers Ability Ability to Transfer In/Out of Chair: Total Assistance X 1 Exam Const: General: comfortable and no acute distress HENMT: General nose exam: Normal nares present Mouth: Yes moist mucous membranes Eyes: General: appearance normal, both eyes and all related structures Neck: Neck: supple and no JVD Resp: Effort & Inspection: normal respiratory effort Auscultation: clear to auscultation bilaterally Cardio: Rate: regular rate Rhythm: regular rhythm GI: GI Palp: Yes Soft to palpation Auscultation: normal bowel sounds Skin: General skin exam: normal color and no rashes or lesions noted Neuro: Other: patient is awake and alert well oriented has significant improvement in his proximal more than distal weakness his healing process in the right 3rd and 4th finger is good Extrem: Other: the amputated right 3rd and 4th finger is in healing process and doing fairly well Psych: Mental Status: mental status grossly normal Objective Data Vital Signs Vital Signs: Vital Signs - 24 hr 07/05/20 14:00 07/05/20 20:00 07/05/20 22:00 Temperature 36.2 C L 36.4 C L Pulse Rate 70 91 91 Respiratory Rate 20 18 18 Blood Pressure 149/68 H 123/67 Pulse Oximetry 100 94 94 07/06/20 06:00 07/06/20 08:40 Temperature 36.2 C L Pulse Rate 77 91 Respiratory Rate 18 Blood Pressure 148/71 H Pulse Oximetry 95 Intake/Output Intake/Output: Intake & Output 07/03/20 07/04/20 07/05/20 07/06/20 23:59 23:59 23:59 23:59 Intake Total 2240 840 1300 290 Output Total 250 4000 0 Balance 1989 1300 290 Meds/Results Medications: Active Medications Generic Name Dose Route Start Last Admin Trade Name Freq PRN Reason Stop Dose Admin Acetaminophen 650 mg 06/21/20 18:52 Tylenol Tablet PO Q6H PRN Pain, Mild Amoxicillin 500 mg 06/22/20 21:00 07/05/20 20:06 Amoxil Capsule PO 500 mg HS RONNIE Administration Aspirin 81 mg 06/22/20 09:00 07/06/20 08:39 Aspirin Chewable PO 81 mg DAILY RONNIE Administration Atorvastatin Calcium 40 mg 06/21/20 21:00 07/05/20 20:06 Lipitor PO 40 mg HS RONNIE Administration Digoxin 125 mcg 06/23/20 09:00 07/05/20 08:49 Lanoxin Tab PO 125 mcg MoWeFr RONNIE Administration Epoetin Eric-epbx 10,000 units 06/24/20 10:30 07/04/20 16:59 Retacrit IV PUSH Not Given TUTHSA RONNIE Gabapentin 100 mg 06/22/20 11:07 Neurontin PO Q4H PRN MODERATE PAIN Heparin Sodium (Porcine) 5,000 units 06/21/20 21:00 07/06/20 08:39 Heparin Sodium SUB-Q 5,000 units Q12HR RONNIE Administration Albumin Human 50 mls @ 999 mls/hr 07/01/20 02:12 Albutein IVPB 07/31/20 02:13 Q10M PRN HYPOTENSION Lactic Acid 1 applic 06/22/20 09:00 07/06/20 08:40 Lac-Hydrin Lotion TOPICAL 07/22/20 09:01 1 applic DAILY RONNIE Administration Lisinopril 30 mg 06/27/20 17:00 07/06/20 08:39 Prinivil PO 30 mg BIDWM RONNIE Administration Metoprolol Succinate 100 mg 06/22/20 09:00 07/06/20 0
--- NOTE | 2020-07-06 13:26 | PM.PNNEP ---
Progress Note: A&P Assessment and Plan (1) End stage renal disease: Code(s): N18.6 - End stage renal disease Status: Acute Assessment and Plan: HD today and continue T/T/S schedule for now follow electrolytes, volume status, and clearance (2) Hypertension: Code(s): I10 - Essential (primary) hypertension Status: Acute Assessment and Plan: reasonable control follow hemodynamics (3) Erythropoietin deficiency anemia: Code(s): D63.1 - Anemia in chronic kidney disease Status: Acute Assessment and Plan: due to ESRD Epogen with HD follow trend of H/H (4) Renal osteodystrophy: Code(s): N25.0 - Renal osteodystrophy Status: Acute Assessment and Plan: last phosphorus on the low side holding binders at this time follow calcium and repeat phosphorus levels (5) Peritoneal abscess: Code(s): K65.1 - Peritoneal abscess Status: Acute Assessment and Plan: peritoneal drain in place presumably to be removed at [facility] (since placed there) Will continue to follow - not opposed to discharge tomorrow from renal perspective; he can follow-up with Dr. Espinoza at his outpatient dialysis unit. Subjective Date/time seen: 07/06/20 13:26 Tolerating dialysis at the time of my visit (seen on HD at ~ 1:10PM); no apparent distress voiced at this time; PT/OT going quite well; note plans for discharge tomorrow which he is happy about. Exam Narrative: Exam Narrative: General: WD/WN male in NAD Heart: normal S1 and S2; no rub Lungs: clear to auscultation Abdomen: soft, nontender, nondistended, positive bowel sounds Extremities: no cyanosis or clubbing; trace edema Skin: no rash or nodules Objective Data Vital Signs Vital Signs: Vital Signs Temp Pulse Resp BP Pulse Ox 07/06/20 08:40 91 07/06/20 06:00 36.2 C L 77 18 148/71 H 95 07/05/20 22:00 36.4 C L 91 18 123/67 94 07/05/20 20:00 91 18 94 07/05/20 14:00 36.2 C L 70 20 149/68 H 100 Intake/Output Intake/Output: Intake & Output 07/03/20 07/04/20 07/05/20 07/06/20 23:59 23:59 23:59 23:59 Intake Total 2240 840 1300 530 Output Total 250 4000 0 Balance 1989 1300 530 Meds/Results Medications: Active Medications Generic Name Dose Route Start Last Admin Trade Name Freq PRN Reason Stop Dose Admin Acetaminophen 650 mg 06/21/20 18:52 Tylenol Tablet PO Q6H PRN Pain, Mild Amoxicillin 500 mg 06/22/20 21:00 07/05/20 20:06 Amoxil Capsule PO 500 mg HS RONNIE Administration Aspirin 81 mg 06/22/20 09:00 07/06/20 08:39 Aspirin Chewable PO 81 mg DAILY RONNIE Administration Atorvastatin Calcium 40 mg 06/21/20 21:00 07/05/20 20:06 Lipitor PO 40 mg HS RONNIE Administration Digoxin 125 mcg 06/23/20 09:00 07/05/20 08:49 Lanoxin Tab PO 125 mcg MoWeFr RONNIE Administration Epoetin Eric-epbx 10,000 units 06/24/20 10:30 07/04/20 16:59 Retacrit IV PUSH Not Given TUTHSA [facility] Gabapentin 100 mg 06/22/20 11:07 Neurontin PO Q4H PRN MODERATE PAIN Heparin Sodium (Porcine) 5,000 units 06/21/20 21:00 07/06/20 08:39 Heparin Sodium SUB-Q 5,000 units Q12HR RONNIE Administration Albumin Human 50 mls @ 999 mls/hr 07/01/20 02:12 Albutein IVPB 07/31/20 02:13 Q10M PRN HYPOTENSION Lactic Acid 1 applic 06/22/20 09:00 07/06/20 08:40 Lac-Hydrin Lotion TOPICAL 07/22/20 09:01 1 applic DAILY RONNIE Administration Lisinopril 30 mg 06/27/20 17:00 07/06/20 08:39 Prinivil PO 30 mg BIDWM RONNIE Administration Metoprolol Succinate 100 mg 06/22/20 09:00 07/06/20 08:40 Toprol Xl PO 100 mg DAILY RONNIE Administration Mirtazapine 15 mg 06/21/20 21:00 07/05/20 20:06 Remeron PO 15 mg HS RONNIE Administration Pantoprazole Sodium 40 mg 06/22/20 09:00 07/06/20 08:40 Protonix PO 40 mg DAILY RONNIE Administration Vitamin B
[2020-07-06] MEDS: EPOETIN ALFA-EPBX 10,000 UNITS/ML VIAL 10000 UNITS IV PUSH (14:24)
[2020-07-06] MEDS: MIRTAZAPINE 15 MG TABLET PO (20:56)
[2020-07-06] MEDS: AMOXICILLIN 500 MG CAPSULE PO (20:56)
[2020-07-06] MEDS: ATORVASTATIN 40 MG TABLET PO (20:56)
[2020-07-07 05:29] LABS: Glucose Point of Care 91 (65-105)
[2020-07-07 06:00] VITALS: BP 149/60; PULSE 79; RESP 19; TEMP 36.4; O2SAT 97
[2020-07-07] MEDS: lisinopriL 10 MG TABLET 30 MG PO (08:34)
[2020-07-07 08:35] VITALS: PULSE 80
[2020-07-07] MEDS: ASPIRIN 81 MG CHEWABLE TABLET PO (08:35)
[2020-07-07] MEDS: METOPROLOL SUCCINATE EXT REL 100 MG TABCR PO (08:35)
[2020-07-07] MEDS: PANTOPRAZOLE 40 MG TABLET PO (08:35)
[2020-07-07 08:36] VITALS: PULSE 80
[2020-07-07] MEDS: VITAMIN B CMPLX/VIT C/FOLIC AC 1 CAPSULE 1 CAP PO (08:36)
[2020-07-07] MEDS: LACTIC ACID 12% LOTION 225 BTL 1 APPLIC TOPICAL (08:36)
[2020-07-07] MEDS: DIGOXIN TAB 125 MCG TABLET PO (08:36)
[2020-07-07] MEDS: HEPARIN SODIUM 5,000 UNITS/ML VIAL 5000 UNITS SUB-Q (08:36)
[2020-07-07] MEDS: CHOLECALCIFEROL 1,000 UNIT TABLET 1000 UNITS PO (10:22)
--- NOTE | 2020-07-11 12:19 | PM.DS ---
DS: Admitting Diagnosis Admitting Diagnosis Admitting Diagnosis: Uremic myopathy DS: Discharge Diagnosis Discharge Diagnosis (1) Amputation of right ring finger: Code(s): S68.114A - Complete traumatic metacarpophalangeal amputation of right ring finger, initial encounter Status: Acute (2) Amputation of right middle finger: Code(s): S68.112A - Complete traumatic metacarpophalangeal amputation of right middle finger, initial encounter Status: Acute (3) Peritoneal abscess: Code(s): K65.1 - Peritoneal abscess Status: Acute (4) Renal osteodystrophy: Code(s): N25.0 - Renal osteodystrophy Status: Acute (5) Erythropoietin deficiency anemia: Code(s): D63.1 - Anemia in chronic kidney disease Status: Acute (6) Hypertension: Code(s): I10 - Essential (primary) hypertension Status: Acute (7) Type 2 diabetes mellitus: Code(s): E11.9 - Type 2 diabetes mellitus without complications Status: Acute (8) Coronary artery disease: Code(s): I25.10 - Atherosclerotic heart disease of [place] coronary artery without angina pectoris Status: Acute (9) End stage renal disease: Code(s): N18.6 - End stage renal disease Status: Acute (10) Peritoneal dialysis catheter in place: Code(s): Z99.2 - Dependence on renal dialysis Status: Acute (11) Hemodialysis patient: Code(s): Z99.2 - Dependence on renal dialysis Status: Acute (12) Peripheral neuropathy: Code(s): G62.9 - Polyneuropathy, unspecified Status: Acute (13) Myopathy: Code(s): G72.9 - Myopathy, unspecified Status: Acute DS: Summary Hospital Course Reason for hospitalization: this 49-year-old the being on now hemodialysis previously being on peritoneal dialysis and having had peritoneal abscess with the drain left to be removed post discharge from us came to us primarily because of profound weakness related to uremic myopathy with all the other above amend mentioned conditions nephrology was consulted and also other physicians which are self explanatory the patient did very well received the physical therapy of compression therapy gait training and also management with the dialysis he has had amputation of the right middle and ring fingers and and that was clean and healthy he was able to achieve the following independent measures prior to his discharge Hospital Course: eating was independent, oral hygiene independent, toileting partial assistance, bathing partial assistance, upper body dressing setup, lower body dressing partial assistance, footwear setup, rolling in bed independent, sitting in sitting to lying and independently, lying to sitting independent, sit to stand supervision, chair transfers supervision, toilet transfers supervision, car transfers supervision, walking 10 feet supervision, walking 50 feet 5th 2 turns supervision, walking 150 feet supervision, walking 10 feet uneven surfaces supervision, carbon her set up partial assistance, 4 steps patient was unable to, 12 steps patient was unable to, peaking about checked supervision, wheelchair 50 feet independent, wheelchair 150 feet independent, Time Spent with Patient Time attestation: Total time spent providing and/or coordinating discharge services: Exam Const: General: comfortable and no acute distress HENMT: General nose exam: Normal nares present Mouth: Yes dry mucous membranes Eyes: General: appearance normal, both eyes and all related structures Neck: Neck: supple and no JVD Resp: Effort & Inspection: normal respiratory effort Auscultation: clear to auscultation bilaterally Cardio: Rate: regular rate Rhythm: regular rhythm GI: GI Palp: Yes Soft to palpation Auscultation: normal bowel sounds Skin: General skin exam: normal color and no rashes or lesions noted Neuro: Other: patient has remained awake and alert well oriented with normal speech and language f
== END 2020-07-07 12:00 | disposition home health service (06) | DRG 91 ==
PROVIDERS: Internal Medicine Nephrology; Admitting Provider Psychiatry & Neurology Neurology; PCP Family Medicine; Visit Provider Psychiatry & Neurology Neurology
DX: G72.89 Other specified myopathies (principal); N18.6 End stage renal disease; K65.1 Peritoneal abscess; I13.2 Hypertensive heart and chronic kidney disease with heart failure and with stage 5 chronic kidney disease, or end stage renal disease; Z47.81 Encounter for orthopedic aftercare following surgical amputation; Z89.021 Acquired absence of right finger(s); Z89.422 Acquired absence of other left toe(s); Z99.2 Dependence on renal dialysis; D63.1 Anemia in chronic kidney disease; E11.42 Type 2 diabetes mellitus with diabetic polyneuropathy; E11.22 Type 2 diabetes mellitus with diabetic chronic kidney disease; E11.319 Type 2 diabetes mellitus with unspecified diabetic retinopathy without macular edema; E11.51 Type 2 diabetes mellitus with diabetic peripheral angiopathy without gangrene; E55.9 Vitamin D deficiency, unspecified; E78.5 Hyperlipidemia, unspecified; F17.210 Nicotine dependence, cigarettes, uncomplicated; I50.9 Heart failure, unspecified; I25.10 Atherosclerotic heart disease of native coronary artery without angina pectoris; I25.2 Old myocardial infarction; K21.9 Gastro-esophageal reflux disease without esophagitis; N25.0 Renal osteodystrophy; Z95.1 Presence of aortocoronary bypass graft; Z86.74 Personal history of sudden cardiac arrest
CPT/HCPCS: 36415; 80048; 80069; 82728; 83540; 83550; 85025; 85027; 85046; 86706; 87040; 87340; 97110; 97116; 97162; 97167; 97530; 97535; 97542; A9270; G0257; J1644; J7030; Q5106